=== PATIENT | female | born 1940 | race Hispanic/Latino ===

== ENCOUNTER 2018-07-02 13:54 | Inpatient (IN) | payer MEDICARE, BC ==
--- NOTE | 2018-07-02 14:12 | ED PDOC ---
Arrival/HPI - General Time Seen by Provider: 07/02/18 14:02 Historian: Patient, Family, EMS - History of Present Illness Narrative History of Present Illness (Text): 07/02/18 14:06 77 year old female, with past medical history of Alzheimer's disease, hypertension, presents to the Emergency Department via EMS for medical evaluation s/p fall at [facility] prior to arrival. As per EMS, patient was found in the bathroom floor shaking and complaining of left leg discomfort. Patient reportedly had incontinence but no other signs of seizures were noted and was subsequently brought to the Emergency Department for medical evaluation. Daughter, who is a nurse of [employer] [place] is at bedside and informs patient' s mental status is at her baseline. Daughter denies any history of seizure in the past. Patient is unable to recall if she hit her head but is currently only complaining of left hip pain radiating down to her leg. Patient denies any fever , chills, nausea, vomiting, diarrhea, abdominal pain, chest pain, shortness of breath, cough, headache, dizziness, neck pain, back pain, tongue biting or any other complaints. PMD: Dr. Liriano Time/Duration: Prior to Arrival Symptom Onset: Gradual Symptom Course: Unchanged Quality: Aching Activities at Onset: Light Context: Other (long term) Past Medical History - Provider Review Nursing Documentation Reviewed: Yes - Infectious Disease Hx of Infectious Diseases: None - Tetanus Immunization Tetanus Immunization: Unknown - Cardiac Hx Hypertension: Yes - Pulmonary Hx Asthma: Yes Hx Chronic Obstructive Pulmonary Disease (COPD): Yes - Neurological Hx Alzheimer's Disease: Yes Hx Dementia: Yes (???) - Hematological/Oncological Hx Cancer: No - Musculoskeletal/Rheumatological Hx Falls: Yes (fell this morning) - Genitourinary/Gynecological Hx Sexually Transmitted Diseases: No - Psychiatric Hx Depression: Yes Hx Substance Use: No - Past Surgical History Past Surgical History: No Previous - Suicidal Assessment Feels Threatened In Home Enviroment: No Family/Social History - Physician Review Nursing Documentation Reviewed: Yes Family/Social History: No Known Family HX Smoking Status: Never Smoked Hx Alcohol Use: No Hx Substance Use: No Allergies/Home Meds Allergies/Adverse Reactions: Allergies No Known Allergies Allergy (Verified 07/11/14 08:32) Home Medications: Home Meds Medication Instructions Recorded Confirmed ALPRAZolam [Xanax] 0.25 mg PO DAILY 07/02/18 07/02/18 ALPRAZolam [Xanax] 0.5 mg PO HS 07/02/18 07/02/18 Acetaminophen [Tylenol] 650 mg PO PRN PRN 07/02/18 07/02/18 Cyanocobalamin [Vitamin B12] 1,000 mcg PO DAILY 07/02/18 07/02/18 Magnesium Hydroxide [Milk Of 400 mg PO PRN PRN 07/02/18 07/02/18 Magnesia] Melatonin [Meladox Natural Sleep 3 mg PO HS 07/02/18 07/02/18 Aid] Memantine [Namenda] 10 mg PO DAILY 07/02/18 07/02/18 Mirtazapine [Remeron] 30 mg PO DAILY 07/02/18 07/02/18 Multvitamin 1 tab PO DAILY 07/02/18 07/02/18 QUEtiapine [SEROquel] 50 mg PO HS 07/02/18 07/02/18 Review of Systems - Physician Review All systems were reviewed & negative as marked: Yes - Review of Systems Constitutional: absent: Fevers Respiratory: absent: SOB, Cough Cardiovascular: absent: Chest Pain, RODRIGUEZ Gastrointestinal: absent: Abdominal Pain, Diarrhea, Nausea, Vomiting Musculoskeletal: Arthralgias (left hip and left leg pain). absent: Back Pain, Neck Pain Neurological: absent: Headache, Dizziness Physical Exam Vital Signs Reviewed: Yes Vital Signs Temp Pulse Resp BP Pulse Ox 07/02/18 17:07 88 20 152/73 H 98 07/02/18 14:18 97.5 F L 105 H 18 158/89 H 97 Temperature: Afebrile Blood Pressure: Normal Pulse: Tachycardic Respiratory Rate: Normal Appearance: Positive for: Well-Appearing, Non-Toxic, Comfortable, Other (No incontinence) Pain Distress: None Mental Status: Positive for: other (Alert and oriented to person) - Systems Exam Head: Present: Atraumatic, Normocephalic Pupils: Present: PERRL Extroacular Muscles: Present: EOMI Conjunctiva: Present: Normal Mouth: Present: Moist Mucous Membranes Neck: Present: Normal Range of Motion. No: MIDLINE TENDERNESS, Paraspinal Tenderness Respiratory/Chest: Present: Clear to Auscultation, Good Air Exchange. No: Respiratory Distress, Accessory Muscle Use Cardiovascular: Present: Regular Rate and Rhythm, Normal S1, S2. No: Murmurs Abdomen: No: Tenderness, Distention, Peritoneal Signs Back: Present: Other (mild lower lumbar spine tenderness). No: CVA Tenderness Upper Extremity: Present: Normal Inspection, Normal ROM, NORMAL PULSES. No: Cyanosis, Edema Lower Extremity: Present: NORMAL PULSES, Tenderness (tenderness to left hip), Other (left leg externally rotated+ shortened. ). No: Edema Neurological: Present: GCS=15, CN II-XII Intact, Speech Normal, Motor Func Grossly Intact, Normal Sensory Function Skin: Present: Warm, Dry, Normal Color, Abrasion (superficial abrasion to left thigh and left knee). No: Rashes Psychiatric: Present: Alert, Normal Insight, Normal Concentration Medical Decision Making ED Course and Treatment: 07/02/18 14:31 Impression: 77 year old female presents to the Emergency Department complaining of left hip and leg pain s/p fall. Differential Diagnosis included but are not limited to: fracture vs. dislocation ; seizure Plan: -- Labs -- CT of Cervical Spine -- CT of Head -- Labs -- Chest X-ray -- Tylenol -- X-ray of left ankle -- X-ray of hip -- X-ray of left knee -- UA -- Reassess and disposition Prior Visits: Notes and results from previous visits were reviewed. Progress No 07/02/18 14:32 EKG: Ordered, reviewed, and independently interpreted the EKG. Rate : 105 BPM Rhythm : Sinus Tachycardia Interpretation : No ST-segment elevations or depressions, no T-wave inversions, normal intervals. 07/02/18 16:00 CT of head reviewed by radiologist, no acute findings. CT of Cervical spine reviewed by radiologist, shows not acute findings. X-ray of left knee reviewed by radiologist, shows degenerative changes are seen in the medial and lateral joint compartment. No evidence of fracture. X-ray of Hip/Pelvis reviewed by radiologist, shows displaced subcapital hip fracture on the left. Chest X-ray reviewed by radiologist, shows nodule in the right upper lobe measuring 2.4 cm. This is unchanged. X-ray of left ankle reviewed by radiologist, shows no acute findings. 07/02/18 16:[address] Hurtado who will admit to his service to med/surg for seizure and left hip fracture. Case discussed with Dr. Jean Baptiste who will come and evaluate patient. Toradol IV given for pain control. 07/02/18 16:48 Dr. Jean Baptiste is at bedside evaluating patient. He called for Neurology Consult for Dr. Noonan and Cardiology for Dr. Daniel. I spoke to Dr. Noonan who recommends Keppra 500mg IV now and then BID. - Critical Care Critical Care Minutes: 30 minutes - Lab Interpretations Lab Results: 07/02/18 14:25 07/02/18 14:25 Lab Results 07/02/18 15:30: Blood Type B POSITIVE, Antibody Screen Negative, BBK History Checked No verified bt 07/02/18 14:25: PT 11.6, INR 1.01, APTT 25.7 07/02/18 14:25: Alcohol, Quantitative < 10 07/02/18 14:25: Sodium 139, Potassium 4.4, Chloride 103, Carbon Dioxide 27, Anion Gap 13, BUN 17, Creatinine 0.8, Est GFR ( Amer) > 60, Est GFR (Non- Af Amer) > 60, Random Glucose 176 H, Calcium 9.4, Magnesium 2.1, Total Bilirubin 0.7, AST 36, ALT 23, Alkaline Phosphatase 115, Total Protein 7.8, Albumin 4.2, Globulin 3.6, Albumin/Globulin Ratio 1.2 07/02/18 14:25: WBC 16.5 H D, RBC 4.74, Hgb 14.3, Hct 42.4, MCV 89.5, MCH 30.2, MCHC 33.7, RDW 13.8, Plt Count 308, MPV 10.3, Gran % 87.7 H, Lymph % (Auto) 8.6 L, Bailey % (Auto) 3.6, Eos % (Auto) 0.1 L, Baso % (Auto) 0.0, Gran # 14.51 H, Lymph # (Auto) 1.4, Bailey # (Auto) 0.6, Eos # (Auto) 0.0, Baso # (Auto) 0.00 - RAD Interpretation Radiology Orders: 07/02/18 14:06 CERVICAL SPINE W/O CONTRAST [CT] Stat HEAD W/O CONTRAST [CT] Stat 07/02/18 14:07 CXR [CHEST ONE VIEW] [RAD] Stat ANKLE LEFT 3 VIEWS ROUTINE [RAD] Stat HIP MIN 2V W/ PELVIS LT [RAD] Stat KNEE LEFT 2 VIEWS (AP & LAT) [RAD] Stat 07/02/18 14:35 LUMBAR SPINE W/O CONTRAST [CT] Stat Technical Service Engineer: Radiologist - Medication Orders Current Medication Orders: Acetaminophen (Tylenol 325mg Tab) 650 mg PO Q4H PRN PRN Reason: Pain, Mild (1-3) Sodium Chloride (Sodium Chloride 0.9%) 1,000 mls @ 100 mls/hr IV .Q10H VANESSA Last Admin: 07/02/18 15:31 Dose: 100 mls/hr eMAR Start Stop Document 07/02/18 15:31 EQ (Rec: 07/02/18 15:31 EQ [id number]) Intravenous Solution Start Date 07/02/18 Start Time 15:31 Morphine Sulfate (Morphine) 2 mg IVP Q4H PRN PRN Reason: Pain, severe (8-10) Ondansetron HCl (Zofran Inj) 4 mg IVP Q4H PRN PRN Reason: Nausea/Vomiting Discontinued Medications Acetaminophen (Tylenol 325mg Tab) 650 mg PO STAT STA Stop: 07/02/18 14:08 Last Admin: 07/02/18 14:34 Dose: 650 mg MAR Pain/Vitals Document 07/02/18 14:34 EQ (Rec: 07/02/18 14:34 EQ [id number]) Pain Reassessment Is This A Pain ReAssessment? No Sleep Is patient sleeping during reassessment? No Presence of Pain Presence of Pain Yes Ketorolac Tromethamine (Toradol) 30 mg IVP STAT STA Stop: 07/02/18 16:07 Last Admin: 07/02/18 16:20 Dose: 30 mg MAR Pain Assessment Document 07/02/18 16:20 EQ (Rec: 07/02/18 16:20 EQ [id number]) Pain Reassessment Is this a pain reassessment? No Sleep Is patient sleeping during reassessment? No Presence of Pain Presence of Pain Yes IVP Administration Document 07/02/18 16:20 EQ (Rec: 07/02/18 16:20 EQ [id number]) Charges for Administration # of IVP Administrations 1 Morphine Sulfate (Morphine) 2 mg IVP STAT STA Stop: 07/02/18 16:57 Last Admin: 07/02/18 17:07 Dose: 2 mg MAR Pain Assessment Document 07/02/18 17:07 EQ (Rec: 07/02/18 17:07 EQ [id number]) Pain Reassessment Is this a pain reassessment? No Sleep Is patient sleeping during reassessment? No Presence of Pain Presence of Pain Yes IVP Administration Document 07/02/18 17:07 EQ (Rec: 07/02/18 17:07 EQ [id number]) Charges for Administration # of IVP Administrations 1 - Scribe Statement The provider has reviewed the documentation as recorded by the Scribe Ant Davis. All medical record entries made by the Scribe were at my direction and personally dictated by me. I have reviewed the chart and agree that the record accurately reflects my personal performance of the history, physical exam, medical decision making, and the department course for this patient. I have also personally directed, reviewed, and agree with the discharge instructions and disposition. Disposition/Present on Arrival - Present on Arrival Any Indicators Present on Arrival: No History of DVT/PE: No History of Uncontrolled Diabetes: No Urinary Catheter: No History Surgical Site Infection Following: None - Disposition Have Diagnosis and Disposition been Completed?: Yes Diagnosis: Closed left hip fracture, Seizure Disposition: HOSPITALIZED Disposition Time: 16:02 Patient Plan: Admission Patient Problems: Current Active Problems Problem Status Onset Closed left hip fracture Acute Seizure Acute Condition: GUARDED
[2018-07-02 14:53] LABS: EOS % 0.1 % (1.5-5.0); GRAN # 14.51 (1.4-6.5); GRAN % 87.7 % (50.0-68.0); HEMOGLOBIN 14.3 g/dL (12.0-16.0); LYMPH # 1.4 (1.2-3.4); LYMPH % 8.6 % (22.0-35.0); MEAN CELL VOLUME 89.5 fl (80.0-105.0); MEAN CORPUSCULAR HEMOGLOBIN 30.2 pg (25.0-35.0); MEAN CORPUSCULAR HGB CONC 33.7 g/dl (31.0-37.0); MEAN PLATELET VOLUME 10.3 fl (7.0-11.0); MONO # 0.6 (0.1-0.6); MONO % 3.6 % (1.0-6.0); RBC 4.74 10^6/uL (3.5-6.1); RED CELL DISTRIBUTION WIDTH 13.8 % (11.5-14.5); WHITE BLOOD COUNT 16.5 10^3/ul (4.5-11.0)
[2018-07-02 14:59] LABS: INR 1.01; PARTIAL THROMBOPLASTIN TIME 25.7 Seconds (25.1-36.5); PROTHROMBIN TIME 11.6 SECONDS (9.4-12.5)
--- NOTE | 2018-07-02 15:08 | CT ---
Date of service: 07/02/2018 PROCEDURE: CT HEAD WITHOUT CONTRAST. HISTORY: fall / seizure COMPARISON: None available. TECHNIQUE: Axial computed tomography images were obtained through the head/brain without intravenous contrast. Radiation dose: Total exam DLP = 1791 mGy-cm. This CT exam was performed using one or more of the following dose reduction techniques: Automated exposure control, adjustment of the mA and/or kV according to patient size, and/or use of iterative reconstruction technique. FINDINGS: HEMORRHAGE: No intracranial hemorrhage. BRAIN: No mass effect or edema. Mild atrophy. VENTRICLES: Unremarkable. No hydrocephalus. CALVARIUM: Unremarkable. PARANASAL SINUSES: Unremarkable as visualized. No significant inflammatory changes. MASTOID AIR CELLS: Unremarkable as visualized. No inflammatory changes. OTHER FINDINGS: None. IMPRESSION: No acute findings
--- NOTE | 2018-07-02 15:10 | CT ---
Date of service: 07/02/2018 PROCEDURE: CT Cervical Spine without contrast HISTORY: fall r/o fracture COMPARISON: None available. TECHNIQUE: Axial computed tomography images were obtained of the cervical spine without the use of intravenous contrast. Coronal and sagittal reformatted images were created and reviewed. Radiation dose: Total exam DLP = 437 mGy-cm. This CT exam was performed using one or more of the following dose reduction techniques: Automated exposure control, adjustment of the mA and/or kV according to patient size, and/or use of iterative reconstruction technique. FINDINGS: VERTEBRAE: No fracture. Normal alignment. No destructive bony lesion. DISCS/SPINAL CANAL/NEURAL FORAMINA: No significant central canal or neural foraminal stenosis. There is disc degeneration at C4-5 and C5-6 PARASPINAL SOFT TISSUES: Unremarkable. OTHER FINDINGS: None. IMPRESSION: No acute findings
[2018-07-02 15:15] LABS: CALCIUM 9.4 mg/dL (8.4-10.5); GFR NON-AFRICAN AMERICAN > 60
--- NOTE | 2018-07-02 15:22 | CT ---
Date of service: 07/02/2018 PROCEDURE: CT Lumbar Spine without contrast HISTORY: fall r/o fx COMPARISON: None available. TECHNIQUE: Axial computed tomography images were obtained of the lumbar spine without the use of intravenous contrast. Coronal and sagittal reformatted images were created and reviewed. Radiation dose: Total exam DLP = 1493 mGy-cm. This CT exam was performed using one or more of the following dose reduction techniques: Automated exposure control, adjustment of the mA and/or kV according to patient size, and/or use of iterative reconstruction technique. FINDINGS: VERTEBRAE: Unremarkable. No fracture. Normal alignment. DISCS/SPINAL CANAL/NEURAL FORAMINA: L1-2: Unremarkable. L2-3: Unremarkable. L3-4: Unremarkable. L4-5: There is facet arthropathy with small synovial cysts. There is air within the facet joints and the synovial cysts. There is a moderate degree of stenosis. L5-S1: Moderate facet arthropathy at L5-S1. PARASPINAL SOFT TISSUES: Unremarkable. OTHER FINDINGS: None. IMPRESSION: No acute compression fractures. Facet arthropathy at L4-5 with mild to moderate stenosis
[2018-07-02] MEDS: Sodium Chloride 0.9% 1,000 ML IV SCH (15:31)
--- NOTE | 2018-07-02 15:35 | RAD ---
Date of service: 07/02/2018 PROCEDURE: CHEST RADIOGRAPH, 1 VIEW HISTORY: fall r/o fraccture COMPARISON: 07/03/2014 FINDINGS: LUNGS: There is nodule in the right upper lobe measuring 2.4 cm. This is unchanged PLEURA: No pneumothorax or pleural fluid seen. CARDIOVASCULAR: Normal. OSSEOUS STRUCTURES: No significant abnormalities. VISUALIZED UPPER ABDOMEN: Normal. OTHER FINDINGS: None. IMPRESSION: There is nodule in the right upper lobe measuring 2.4 cm. This is unchanged
--- NOTE | 2018-07-02 15:37 | RAD ---
Date of service: 07/02/2018 PROCEDURE: Pelvis three views HISTORY: fall r/o fx COMPARISON: TECHNIQUE: Three views FINDINGS: There is a displaced subcapital hip fracture on the left. The pelvis is intact. The right hip is unremarkable IMPRESSION: Displaced subcapital hip fracture on the left
--- NOTE | 2018-07-02 15:38 | RAD ---
Date of service: 07/02/2018 PROCEDURE: Left Knee Radiographs. HISTORY: Pain. COMPARISON: None. FINDINGS: BONES: Normal. No fracture. JOINTS: Degenerative changes are seen in the medial and lateral joint compartment. No evidence of fracture JOINT EFFUSION: None. OTHER FINDINGS: None. IMPRESSION: Degenerative changes are seen in the medial and lateral joint compartment. No evidence of fracture
--- NOTE | 2018-07-02 15:39 | RAD ---
Date of service: 07/02/2018 PROCEDURE: Left Ankle Radiographs. HISTORY: fall r/o fx COMPARISON: None FINDINGS: BONES: Normal. No fracture. JOINTS: Normal. No osteoarthritis. Ankle mortise maintained. Talar dome intact SOFT TISSUES: Normal. OTHER FINDINGS: None. IMPRESSION: Normal left ankle radiographs.
[2018-07-02 16:01] LABS: ALB/GLOB RATIO 1.2 (1.1-1.8); ALBUMIN 4.2 g/dL (3.0-4.8); ALT/SGPT 23 U/L (7-56); AST/SGOT 36 U/L (14-36); BLOOD UREA NITROGEN 17 mg/dL (7-21)
[2018-07-02 16:54] LABS: PH,URINE 6.5 (4.7-8.0); URINE APPEARANCE CLEAR (CLEAR); URINE BILIRUBIN NEGATIVE (NEGATIVE); URINE BLOOD NEGATIVE (NEGATIVE); URINE COLOR YELLOW (YELLOW); URINE GLUCOSE (UA) NEGATIVE (NEGATIVE); URINE LEUKOCYTE ESTERASE NEGATIVE Leu/uL (NEGATIVE); URINE PROTEIN TRACE mg/dL (<30 mg/dL); URINE UROBILINOGEN 0.2 E.U./dL (<1 E.U./dL)
[2018-07-02] MEDS ORDERED: Morphine 2 mg/ml ISec IVP STA (16:56)
[2018-07-02 16:59] LABS: URINE BACTERIA FEW (NEG); URINE RBC 0 - 2 /hpf (0-2); URINE WBC 0 - 2 /hpf (0-6)
[2018-07-02] MEDS ORDERED: levETIRAcetam 500mg IVPB 500 MG/100 ML BAG IVPB STA (17:10)
--- NOTE | 2018-07-02 17:11 | CARD ---
APPROVED REPORT Date of service: 07/02/2018 EKG Measurement Heart [id number] <Conclusion> Sinus tachycardia Otherwise normal ECG
[2018-07-02 19:22] VITALS: BMI 25.7
--- NOTE | 2018-07-03 05:35 | CON ---
DATE: 07/02/2018 HISTORY OF PRESENT ILLNESS: This is a 77-year-old white female with past medical history of Alzheimer's, hypertension. Patient came to the emergency room following after a fall and was found on the bathroom floor, shaking and lost control of urine, no tongue bite. Called to evaluate the patient. PAST MEDICAL HISTORY: As above. High blood pressure, Alzheimer's and dementia. ALLERGIES: NO KNOWN DRUG ALLERGIES. HOME MEDICATIONS: Xanax, Tylenol, Namenda, Remeron and Seroquel. PHYSICAL EXAMINATION: VITAL SIGNS: Blood pressure 158/89. HEENT: Normocephalic, atraumatic. NECK: Supple. NEUROLOGIC: Alert, awake, orientated to self. Cranial nerves II through XII were tested. Pupils reactive. EOM intact. Visual almonte full. No facial asymmetry. Tongue midline. Moves all extremities equally except less movement at left leg and secondary to fracture. Cerebellar and gait, deferred. IMPRESSION: 1. Status post fall, possibly new onset seizure. 2. Superimposed on dementia. PLAN: CAT scan of the head was negative. We will start her on Keppra 500 mg twice a day and patient will go for surgery tomorrow. Jeevan Noonan MD
[2018-07-03] MEDS: Morphine 2 mg/ml ISec IVP PRN (05:51)
[2018-07-03] MEDS: Sodium Chloride 0.9% 1,000 ML IV SCH ×2 (05:53→21:26)
[2018-07-03 06:31] LABS: HEMOGLOBIN 11.7 g/dL (12.0-16.0); MEAN CELL VOLUME 89.5 fl (80.0-105.0); MEAN CORPUSCULAR HEMOGLOBIN 29.3 pg (25.0-35.0); MEAN CORPUSCULAR HGB CONC 32.8 g/dl (31.0-37.0); RBC 3.99 10^6/uL (3.5-6.1); RED CELL DISTRIBUTION WIDTH 13.8 % (11.5-14.5); WHITE BLOOD COUNT 8.2 10^3/ul (4.5-11.0)
[2018-07-03 07:04] LABS: ALB/GLOB RATIO 1.1 (1.1-1.8); ALBUMIN 3.4 g/dL (3.0-4.8); ALT/SGPT 26 U/L (7-56); AST/SGOT 30 U/L (14-36); BLOOD UREA NITROGEN 18 mg/dL (7-21); CALCIUM 8.5 mg/dL (8.4-10.5); GFR NON-AFRICAN AMERICAN > 60
--- NOTE | 2018-07-03 08:34 | CON ---
DATE: 07/02/2018 ORTHOPEDIC CONSULT LOCATION: [facility] Emergency Room. HISTORY OF PRESENT ILLNESS: The patient is a 77-year-old female sustained a fall while she was being an inpatient at [facility] and sustained a displaced subcapital fracture of left hip. The CAT scan is negative. The family was told that we should do a bipolar hip prosthesis, so that she can get up out of bed and start ambulating at therapy, as opposed to just lying in bed with tremendous pain. So, the surgery is to be accomplished; 1. To get rid of the pain. 2. To make her functional and ambulate with a walker; and at therapy, she could gradually improve and get stronger to a point where she could walk without an banking assistant/device. So, we will plan doing the surgery on 07/03/2018. We are going to get a medical clearance with Dr. Hurtado, Dr. Daniel, and Dr. Noonan. Eliu Jean Baptiste DO
[2018-07-03] MEDS ORDERED: Bupivacaine 0.5% Inj(30mL) ONE (09:37)
[2018-07-03] MEDS ORDERED: Vancomycin 1 g Inj ONE ×3 (09:39→11:57)
[2018-07-03] MEDS ORDERED: Tranexamic Acid 1 ML ONE (09:39)
[2018-07-03] MEDS ORDERED: Etomidate 20 mg/10ml Inj IV ONE (10:26)
[2018-07-03] MEDS ORDERED: Rocuronium 10 mg/ml (5 ml) ONE (10:28)
[2018-07-03] MEDS ORDERED: Succinylcholine 200 mg/10 ml Inj IV ONE (10:28)
[2018-07-03] MEDS ORDERED: ePHEDrine 50 mg/ml Inj ONE (11:04)
--- NOTE | 2018-07-03 12:35 | CP.PCM.HP ---
<Stone Melvin - Last Filed: 07/03/18 12:26> History of Present Illness - History of Present Illness History of Present Illness: 77 year old female with past medical history of alzheimer's disease and hypertension presented to the hospital after being found on the ground with seizure like movements at senior care. Patient has history of dementia and prior medical history taken from previous medical records. Patient was found on the bathroom floor shaking. Patient was also noted to be complaining of left leg pain. Patient was brought into the hospital by her daughter. According to daughter, patient does not have any history of seizures. In the ED patient received head CT which showed no acute findings. Patient also had x-ray of left ankle, left knee which were negative for acute findings. Patient had x-ray of left hip which showed a subcapital hip fracture. ROS and prior medical history unobtainable secondary to patient's dementia. Present on Admission - Present on Admission Any Indicators Present on Admission: No Review of Systems - Review of Systems Systems not reviewed;Unavailable: Dementia Past Patient History - Infectious Disease Hx of Infectious Diseases: None - Tetanus Immunizations Tetanus Immunization: Unknown - Past Medical History & Family History Past Medical History?: Yes - Past Social History Smoking Status: Never Smoked - CARDIAC Hx Cardiac Disorders: Yes Hx Hypercholesterolemia: Yes Hx Hypertension: Yes - PULMONARY Hx Respiratory Disorders: Yes Hx Asthma: Yes (work related) Hx Chronic Obstructive Pulmonary Disease (COPD): (daughter denies) Other/Comment: 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 and developed asthma but has not had an episode in years, lung nodule found10 yrs ago, has been stable no tx - NEUROLOGICAL Hx Alzheimer's Disease: Yes (dx about 3 yrs ago) Hx Dementia: Yes (dx about 3 yrs ago) Hx Dizziness: Yes (vertigo) Other/Comment: pt "sundown's", wanders, has had hallucinations in the past, agitation, memory loss, confusion, as per daughter - HEENT Hx HEENT Problems: No - RENAL Hx Chronic Kidney Disease: No - ENDOCRINE/METABOLIC Hx Endocrine Disorders: No - HEMATOLOGICAL/ONCOLOGICAL Hx Blood Disorders: No Hx Cancer: No - INTEGUMENTARY Hx Dermatological Problems: Yes Hx Eczema: Yes Other/Comment: dry patches of skin over body from eczema, small 1cm round red area of skin above left knee - MUSCULOSKELETAL/RHEUMATOLOGICAL Hx Falls: Yes (found on floor today) - GASTROINTESTINAL Hx Gastrointestinal Disorders: No - GENITOURINARY/GYNECOLOGICAL Hx Genitourinary Disorders: Yes (negative mammo abouot 5 yrs ago) Hx Sexually Transmitted Disorders: No - PSYCHIATRIC Hx Substance Use: No - SURGICAL HISTORY Hx Surgeries: No Meds Allergies/Adverse Reactions: Allergies Allergy/AdvReac Type Severity Reaction Status Date / Time No Known Allergies Allergy Verified 07/11/14 08:32 Physical Exam - Constitutional Appears: Non-toxic, Agitated, Confused - Head Exam Head Exam: ATRAUMATIC, NORMAL INSPECTION, NORMOCEPHALIC - Eye Exam Eye Exam: Normal appearance. absent: Scleral icterus - ENT Exam ENT Exam: Mucous Membranes Moist - Respiratory Exam Respiratory Exam: Clear to Auscultation Bilateral, NORMAL BREATHING PATTERN - Cardiovascular Exam Cardiovascular Exam: RRR, +S1, +S2 - GI/Abdominal Exam GI & Abdominal Exam: Normal Bowel Sounds, Soft. absent: Tenderness - Extremities Exam Additional comments: Left hip pain on palpation - Neurological Exam Neurological exam: Alert Additional comments: Oriented to person only - Psychiatric Exam Psychiatric exam: Agitated - Skin Skin Exam: Dry, Intact, Warm Results - Vital Signs Recent Vital Signs: Last Vital Signs Temp 98.8 F 07/03/18 09:30 Pulse 101 H 07/03/18 09:30 Resp 20 07/03/18 09:30 BP 137/61 07/03/18 09:30 Pulse Ox 96 07/03/18 09:30 - Labs Result Diagrams: 07/03/18 05:30 07/03/18 05:30 Labs: Laboratory Results - last 24 hr 07/02/18 07/02/18 07/03/18 16:43 17:15 05:30 WBC 8.2 D RBC 3.99 Hgb 11.7 L D Hct 35.7 L MCV 89.5 MCH 29.3 MCHC 32.8 RDW 13.8 Plt Count 256 MPV 10.0 Sodium Potassium Chloride Carbon Dioxide Anion Gap BUN Creatinine Est GFR ( Amer) Est GFR (Non-Af Amer) Random Glucose Calcium Magnesium Total Bilirubin AST ALT Alkaline Phosphatase Total Protein Albumin Globulin Albumin/Globulin Ratio Urine Color Yellow Urine Appearance Clear Urine pH 6.5 Ur Specific [place] 1.015 Urine Protein Trace H Urine Glucose (UA) Negative Urine Ketones Trace H Urine Blood Negative Urine Nitrate Negative Urine Bilirubin Negative Urine Urobilinogen 0.2 Ur Leukocyte Esterase Negative Urine RBC 0 - 2 Urine WBC 0 - 2 Ur Epithelial Cells 3 - 4 Urine Bacteria Few Blood Type Confirm B POSITIVE 07/03/18 05:30 WBC RBC Hgb Hct MCV MCH MCHC RDW Plt Count MPV Sodium 139 Potassium 4.2 Chloride 107 Carbon Dioxide 26 Anion Gap 10 BUN 18 Creatinine 0.9 Est GFR ( Amer) > 60 Est GFR (Non-Af Amer) > 60 Random Glucose 112 H Calcium 8.5 Magnesium 2.0 Total Bilirubin 0.9 AST 30 ALT 26 Alkaline Phosphatase 81 Total Protein 6.5 Albumin 3.4 Globulin 3.1 Albumin/Globulin Ratio 1.1 Urine Color Urine Appearance Urine pH Ur Specific [place] Urine Protein Urine Glucose (UA) Urine Ketones Urine Blood Urine Nitrate Urine Bilirubin Urine Urobilinogen Ur Leukocyte Esterase Urine RBC Urine WBC Ur Epithelial Cells Urine Bacteria Blood Type Confirm Assessment & Plan - Assessment and Plan (Free Text) Plan: 1. Left subcapital hip fracture 2. New onset seizure 3. Alzheimer's disease 4. Hypertension Patient is scheduled for orthopedic repair of left hip fracture today. Patient will be continued on Morphine for pain. Metoprolol has also been added. Patient is placed on keppra to prevent any further seizure activity. We will have neurology follow up on patient. Patient will also be continued on Namenda for alzheimer's. Patient will have her Seroquel and Remron continued. We will continue normal saline for fluids. We will continue to monitor patient closely. Olegario, PGY-3 <Aramis Hurtado S - Last Filed: 07/04/18 20:36> Results - Vital Signs Recent Vital Signs: Last Vital Signs Temp 98 F 07/04/18 07:00 Pulse 98 H 07/04/18 18:49 Resp 19 07/04/18 18:49 BP 126/64 07/04/18 18:49 Pulse Ox 97 07/04/18 18:49 - Labs Result Diagrams: 07/04/18 13:10 07/04/18 06:20 Labs: Laboratory Results - last 24 hr 07/04/18 07/04/18 07/04/18 06:20 06:20 06:20 WBC 9.3 D RBC 3.42 L Hgb 9.9 L Hct 30.6 L MCV 89.5 MCH 28.9 MCHC 32.4 RDW 13.6 Plt Count 217 MPV 10.2 Gran % 74.3 H Lymph % (Auto) 15.9 L Garrard % (Auto) 9.4 H Eos % (Auto) 0.3 L Baso % (Auto) 0.1 Gran # 6.90 H Lymph # (Auto) 1.5 Garrard # (Auto) 0.9 H Eos # (Auto) 0.0 Baso # (Auto) 0.01 Sodium 137 Potassium 3.9 Chloride 106 Carbon Dioxide 25 Anion Gap 10 BUN 11 Creatinine 0.8 Est GFR ( Amer) > 60 Est GFR (Non-Af Amer) > 60 Random Glucose 125 H Hemoglobin A1c 6.4 Calcium 7.8 L Phosphorus 3.2 Magnesium 1.7 Total Bilirubin 1.1 AST 43 H D ALT 27 Alkaline Phosphatase 67 Total Protein 5.7 L Albumin 2.9 L Globulin 2.8 Albumin/Globulin Ratio 1.0 L Triglycerides 76 Cholesterol 140 LDL Cholesterol Direct 77 HDL Cholesterol 39 TSH 3rd Generation 07/04/18 07/04/18 06:20 13:10 WBC 11.5 H D RBC 3.59 Hgb 10.6 L Hct 32.2 L MCV 89.7 MCH 29.5 MCHC 32.9 RDW 13.4 Plt Count 212 MPV 9.9 Gran % 79.6 H Lymph % (Auto) 12.2 L Garrard % (Auto) 8.0 H Eos % (Auto) 0.2 L Baso % (Auto) 0.0 Gran # 9.11 H Lymph # (Auto) 1.4 Garrard # (Auto) 0.9 H Eos # (Auto) 0.0 Baso # (Auto) 0.00 Sodium Potassium Chloride Carbon Dioxide Anion Gap BUN Creatinine Est GFR ( Amer) Est GFR (Non-Af Amer) Random Glucose Hemoglobin A1c Calcium Phosphorus Magnesium Total Bilirubin AST ALT Alkaline Phosphatase Total Protein Albumin Globulin Albumin/Globulin Ratio Triglycerides Cholesterol LDL Cholesterol Direct HDL Cholesterol TSH 3rd Generation 0.50 Assessment & Plan - Assessment and Plan (Free Text) Plan: Pt seen and examined. This is a late entry. I have reviewed the note of the medical clerk and agree with it. I have discussed the assessment and plan with the resident. I have reviewed the patient's labs and medications. Pt with L hip fx. She has no Sz. No Delerium, she is at baseline. BP is controlled. No new Sz.
[2018-07-03] MEDS ORDERED: Glycopyrrolate 0.2 mg/ml (2ml vial) ONE (13:04)
[2018-07-03] MEDS ORDERED: HYDROmorphone 0.5 mg/0.5 ml ISec IVP PRN (13:32)
[2018-07-03] MEDS ORDERED: Lactated Ringer's 1,000 ML IV SCH (13:45)
--- NOTE | 2018-07-03 14:46 | CON ---
DATE: 07/03/2018 REASON FOR CONSULTATION: Preop evaluation, risk stratification, status post fall, status post hip fracture requiring open reduction and internal fixation for left hip fracture. BRIEF CLINICAL HISTORY: This is a 77-year-old female with past medical history is significant for Alzheimer, hypertension, presented to the Emergency Room after a fall at a [facility] and questionable history of seizure disorder and then, the patient fell down and broke left hip requiring open reduction and internal fixation. Cardiac consult was called for preop evaluation and risk stratification. The patient has dementia for the last three years. Daughter works in the [employer]. Information obtained from the daughter. No significant history of coronary artery disease documented, no history of angina, no history of congestive heart failure, no history of arrhythmia. PAST MEDICAL HISTORY: Significant for Alzheimer disease for three years and history of hypertension. Resident of [facility]. PAST SURGICAL HISTORY: None significant. SOCIAL HISTORY: Denies any history of alcohol abuse. CURRENT MEDICATIONS: The patient is taking at [facility] Seroquel 50 mg p.o. at bedtime, multivitamin, Remeron, Namenda, melatonin, magnesium oxide, cyanocobalamin, Tylenol and Xanax. ALLERGIES: NO KNOWN DRUG ALLERGIES. PHYSICAL EXAMINATION: VITAL SIGNS: Height of the patient is 5 feet 4 inches, weight of the patient 150 pounds, and body mass index 25.7 kg/m2. Rest of the vitals, temperature afebrile, heart rate 90, blood pressure 136/66. HEENT: PERRLA. Extraocular muscles intact. NECK: Supple. No carotid bruits or thyromegaly. CHEST: Clear to auscultation. HEART: S1 and S2 regular. ABDOMEN: Soft. EXTREMITIES: Clubbing and cyanosis negative. LABORATORY DATA: Blood workup as follows: WBC 8.2, hemoglobin 11.3, hematocrit 35.7, and platelet count 256. Chemistry shows sodium 139, potassium 4.2, chloride 107, carbon dioxide 26, anion gap of 10, BUN 18 and creatinine 0.9. EKG shows sinus tachycardia. IMPRESSION AND PLAN: A 77-year-old female with a past medical history significant for dementia, no significant history of coronary artery disease, no history of angina, no history of arrhythmia; history of dementia, resident of a [facility] who fell down, possibly after a seizure and sustained left hip fracture requiring open reduction and internal fixation. The patient is cleared from Cardiology point of view. May need neurological evaluation before anesthesia if history of seizure is clear, right now it is sketchy, but otherwise no absolute contraindication from Cardiology point of view to go to the OR. Discussed with Dr. Hurtado. We will discuss with Dr. Jean Baptiste. Discussed with the patient's daughter, Jane who works in the [employer] and information obtained from her. We will start low dose beta kendall to prevent going into atrial fibrillation. We will clear for the surgery. We will get echo postop to assess LV function. We will follow with you. We will get lipid profile, TSH, hemoglobin A1c. We will give low dose of Lopressor. The patient is tachycardic, so give 25 mg p.o. in one dose until going back into atrial fibrillation. Thank you Dr. Hurtado for providing us the opportunity in taking care of patient, Brigitte. Dia Daniel MD cc: Aramis Hurtado MD MTDD
--- NOTE | 2018-07-03 15:30 | RAD ---
Date of service: 07/03/2018 PROCEDURE: Left hip single view HISTORY: post op COMPARISON: TECHNIQUE: Single portable film FINDINGS: The left hip prosthesis is in satisfactory alignment. There are no complicating factors IMPRESSION: As above
[2018-07-03 15:58] LABS: BASO # 0.01 K/mm3 (0.0-2.0); BASO % 0.1 % (0.0-3.0); EOS % 0.1 % (1.5-5.0); GRAN # 11.31 (1.4-6.5); GRAN % 77.7 % (50.0-68.0); LYMPH # 2.3 (1.2-3.4); LYMPH % 15.9 % (22.0-35.0); MEAN CELL VOLUME 90.4 fl (80.0-105.0); MEAN CORPUSCULAR HEMOGLOBIN 29.3 pg (25.0-35.0); MEAN CORPUSCULAR HGB CONC 32.4 g/dl (31.0-37.0); MONO # 0.9 (0.1-0.6); MONO % 6.2 % (1.0-6.0); RBC 3.76 10^6/uL (3.5-6.1); RED CELL DISTRIBUTION WIDTH 13.8 % (11.5-14.5); WHITE BLOOD COUNT 14.6 10^3/ul (4.5-11.0)
--- NOTE | 2018-07-03 17:28 | OP ---
PROCEDURE DATE: 07/03/2018 PREOPERATIVE DIAGNOSIS: Displaced subcapital fracture left hip. POSTOPERATIVE DIAGNOSIS: Displaced subcapital fracture left hip. PROCEDURE: Left bipolar hip prosthesis using a standard femoral stem, integral x-series hip system with 13 mm x 145 mm was recorded. Acetabular cup of 44 mm and a modular femoral head of 28 mm. NAME PLATE STAMPING MACHINE OPERATOR SURGEON: Podiatry resident. ANESTHESIA: General endotracheal tube. DESCRIPTION OF PROCEDURE: Patient in the OR was prepped and draped in the sterile fashion in left lateral decubitus position. When she was prepped, we put a posterior lateral incision after the landmarks were made on the left hip going 3 inches above, 3 inches below the greater trochanter, a deep knife was used to go through the abundant subcutaneous tissue. Then, we identified the fascia bonnie opened in line with the incision. Protected the external rotators, which were tagged. Then, opened the capsule in [id number] and the femoral head was readily removed, measured 44 mm. Then, we did appropriate reaming of the femoral shaft to allow to fit a trial stem of 13 x 145 mm fit good in standard neck and good sized bipolar head with 44 mm permanent prosthesis was put in. No evidence of fracturing the local area. Then we irrigated everything out and put in vancomycin powdered in fascia bonnie closed with 0 Vicryl, 2-0 Vicryl subcutaneous tissue, skin with stainless steel magalie and 2-0 nylon. Patient put in sterile dressing. She was sent to the recovery room in good condition with abduction pillow and a knee immobilizer. Eliu Jean Baptiste DO
[2018-07-03 18:51] LABS: BENZODIAZEPINES, UR NEGATIVE (NEGATIVE)
[2018-07-03 18:59] LABS: BARBITURATES, UR NEGATIVE (NEGATIVE); OPIATES, UR POSITIVE (NEGATIVE); PHENCYCLIDINE, UR NEGATIVE (NEGATIVE)
[2018-07-03] MEDS: ceFAZolin 1 gm in NS 1 GM/100 ML BAG IVPB SCH ×2 (20:43→23:29)
[2018-07-03] MEDS ORDERED: levETIRAcetam 500 MG in Sodium Chloride 0.9% 100 ML IV SCH (22:00)
[2018-07-03] MEDS ORDERED: ceFAZolin 1 gm in NS 1 GM/100 ML BAG IVPB SCH (22:46)
[2018-07-04 07:10] LABS: BASO # 0.01 K/mm3 (0.0-2.0); BASO % 0.1 % (0.0-3.0); EOS % 0.3 % (1.5-5.0); GRAN # 6.9 (1.4-6.5); GRAN % 74.3 % (50.0-68.0); HEMOGLOBIN 9.9 g/dL (12.0-16.0); LYMPH # 1.5 (1.2-3.4); LYMPH % 15.9 % (22.0-35.0); MEAN CELL VOLUME 89.5 fl (80.0-105.0); MEAN CORPUSCULAR HEMOGLOBIN 28.9 pg (25.0-35.0); MEAN CORPUSCULAR HGB CONC 32.4 g/dl (31.0-37.0); MEAN PLATELET VOLUME 10.2 fl (7.0-11.0); MONO # 0.9 (0.1-0.6); MONO % 9.4 % (1.0-6.0); RBC 3.42 10^6/uL (3.5-6.1); RED CELL DISTRIBUTION WIDTH 13.6 % (11.5-14.5); WHITE BLOOD COUNT 9.3 10^3/ul (4.5-11.0)
[2018-07-04 07:12] LABS: ALBUMIN 2.9 g/dL (3.0-4.8); ALT/SGPT 27 U/L (7-56); AST/SGOT 43 U/L (14-36); BLOOD UREA NITROGEN 11 mg/dL (7-21); CALCIUM 7.8 mg/dL (8.4-10.5); GFR NON-AFRICAN AMERICAN > 60; HDL CHOLESTEROL 39 mg/dL (29-60)
[2018-07-04 07:21] LABS: LDL CHOLESTEROL 77 mg/dL (0-129)
--- NOTE | 2018-07-04 09:43 | PN ---
DATE: 07/04/2018 FIRST DAY POSTOP REPORT LOCATION: In 376 bed 2. The patient underwent a bipolar hip prosthesis yesterday for displaced subcapital fracture. She has no complaints of undue pain. She was trying to dismantle the abduction pillow, but I reinforced it. Her hemoglobin is 9.9 and 30.6. We will follow her closely and protect her from her tendency to dismantle the abduction pillow, but we will get her up out of bed to move her, minimize bedsores and get her ambulating and functional, but we have to protect her from a make sure she does not inadvertently hyperflex or rotate that left hip and make sure she does not fall again. I will follow her closely. We will bring her to [facility] once she is stable from postop point of view. Eliu Jean Baptiste DO
[2018-07-04] MEDS ORDERED: levETIRAcetam 500 MG in Sodium Chloride 0.9% 100 ML IV SCH (10:00)
[2018-07-04] MEDS ORDERED: levETIRAcetam 500mg IVPB 500 MG/100 ML BAG IVPB SCH (10:00)
[2018-07-04] MEDS ORDERED: Enoxaparin 30 mg Syringe SC SCH (10:00)
--- NOTE | 2018-07-04 10:04 | CP.PCM.PN ---
Subjective - Date & Time of Evaluation Date of Evaluation: 07/04/18 Time of Evaluation: 06:50 - Subjective Subjective: Awake, lying in bed, no distress Reason for consultation and follow up: Cardiac evaluation for hip surgery, risk stratification, post fall, history of Alzheimer's disease, hypertension Seen and examined by me and Dr. Daniel Objective - Vital Signs/Intake and Output Vital Signs (last 24 hours): Temp Pulse Resp BP Pulse Ox 98 F 80 20 123/71 98 07/04/18 07:00 07/04/18 07:00 07/04/18 07:00 07/04/18 07:00 07/04/18 07:00 - Medications Medications: Current Medications Acetaminophen (Tylenol 325mg Tab) 650 mg PO Q4H PRN PRN Reason: Pain, Mild (1-3) Last Admin: 07/04/18 00:32 Dose: 650 mg Alprazolam (Xanax) 0.5 mg PO HS [facility] PRN Reason: Protocol Stop: 07/10/18 22:01 Last Admin: 07/03/18 21:25 Dose: 0.5 mg Amoxicillin/Clavulanate Potassium (Augmentin 500 Mg-125 Mg Tab) 1 tab PO Q12 [facility] PRN Reason: Protocol Enoxaparin Sodium (Lovenox) 30 mg SC DAILY [facility] PRN Reason: Protocol Levetiracetam (Keppra) 500 mg PO BID [facility] Memantine (Namenda) 10 mg PO DAILY [facility] Last Admin: 07/03/18 16:34 Dose: Not Given Metoprolol Tartrate (Lopressor) 25 mg PO BID [facility] Last Admin: 07/03/18 18:14 Dose: 25 mg Mirtazapine (Remeron) 30 mg PO HS [facility] Morphine Sulfate (Morphine) 2 mg IVP Q4H PRN PRN Reason: Pain, severe (8-10) Last Admin: 07/03/18 05:51 Dose: 2 mg Ondansetron HCl (Zofran Inj) 4 mg IVP Q4H PRN PRN Reason: Nausea/Vomiting Quetiapine Fumarate (Seroquel) 50 mg PO HS [facility] PRN Reason: Protocol Last Admin: 07/03/18 21:25 Dose: 50 mg - Labs Labs: 07/04/18 06:20 07/04/18 06:20 PT 11.6 SECONDS (9.4-12.5) 07/02/18 14:25 INR 1.01 07/02/18 14:25 APTT 25.7 Seconds (25.1-36.5) 07/02/18 14:25 - Constitutional Appears: No Acute Distress - Eye Exam Eye Exam: Normal appearance - ENT Exam ENT Exam: Mucous Membranes Moist - Respiratory Exam Respiratory Exam: Clear to Ausculation Bilateral, NORMAL BREATHING PATTERN - Cardiovascular Exam Cardiovascular Exam: +S1, +S2 - GI/Abdominal Exam GI & Abdominal Exam: Soft, Normal Bowel Sounds - Extremities Exam Extremities Exam: Normal Capillary Refill Additional comments: left lef immobilizer with abductor pillow - Neurological Exam Neurological Exam: Alert, Awake - Psychiatric Exam Psychiatric exam: Normal Affect - Skin Skin Exam: Intact, Warm Assessment and Plan - Assessment and Plan (Free Text) Assessment: A 77 year old female who came in to the ER due to [facility] from [facility],post hip fracture requiring surgery.Status post left hip bipolar bioprosthesis. History of Alzheimers disease and hypertension. no significant history of coronary artery disease or ischemia.She was cleared for surgery from cardiac standpoint. Follow up today, she is stable clinically. No distress Plan: Cardiac status stable Heart rate and blood pressure stable Afebrile Continue current treatment Continue current medications Physical therapy Will follow up Plan and treatment discussed with Dr. Daniel
[2018-07-04] MEDS: Amoxicillin-Clav 500-125 mg Tab PO SCH ×2 (10:50→21:40)
[2018-07-04 13:18] LABS: EOS % 0.2 % (1.5-5.0); GRAN # 9.11 (1.4-6.5); GRAN % 79.6 % (50.0-68.0); HEMOGLOBIN 10.6 g/dL (12.0-16.0); LYMPH # 1.4 (1.2-3.4); LYMPH % 12.2 % (22.0-35.0); MEAN CELL VOLUME 89.7 fl (80.0-105.0); MEAN CORPUSCULAR HEMOGLOBIN 29.5 pg (25.0-35.0); MEAN CORPUSCULAR HGB CONC 32.9 g/dl (31.0-37.0); MEAN PLATELET VOLUME 9.9 fl (7.0-11.0); MONO # 0.9 (0.1-0.6); RBC 3.59 10^6/uL (3.5-6.1); RED CELL DISTRIBUTION WIDTH 13.4 % (11.5-14.5); WHITE BLOOD COUNT 11.5 10^3/ul (4.5-11.0)
[2018-07-04] MEDS: Morphine 2 mg/ml ISec IVP PRN ×2 (14:23→18:36)
--- NOTE | 2018-07-04 15:33 | CP.PCM.PN ---
<Stone Melvin - Last Filed: 07/04/18 15:23> Subjective - Date & Time of Evaluation Date of Evaluation: 07/04/18 Time of Evaluation: 08:00 - Subjective Subjective: Patient seen and examined at bedside. Patient with no acute events overnight. ROS limited due to mental status. Objective - Vital Signs/Intake and Output Vital Signs (last 24 hours): Temp Pulse Resp BP Pulse Ox 98 F 80 20 123/71 98 07/04/18 07:00 07/04/18 07:00 07/04/18 07:00 07/04/18 07:00 07/04/18 07:00 - Medications Medications: Current Medications Acetaminophen (Tylenol 325mg Tab) 650 mg PO Q4H PRN PRN Reason: Pain, Mild (1-3) Last Admin: 07/04/18 00:32 Dose: 650 mg Alprazolam (Xanax) 0.5 mg PO HS [facility] PRN Reason: Protocol Stop: 07/10/18 22:01 Last Admin: 07/03/18 21:25 Dose: 0.5 mg Amoxicillin/Clavulanate Potassium (Augmentin 500 Mg-125 Mg Tab) 1 tab PO Q12 [facility] PRN Reason: Protocol Last Admin: 07/04/18 10:50 Dose: 1 tab Enoxaparin Sodium (Lovenox) 40 mg SC DAILY [facility] PRN Reason: Protocol Levetiracetam (Keppra) 500 mg PO BID [facility] Last Admin: 07/04/18 10:50 Dose: 500 mg Memantine (Namenda) 10 mg PO DAILY [facility] Last Admin: 07/04/18 10:50 Dose: 10 mg Metoprolol Tartrate (Lopressor) 25 mg PO BID [facility] Last Admin: 07/04/18 10:50 Dose: 25 mg Mirtazapine (Remeron) 30 mg PO HS [facility] Morphine Sulfate (Morphine) 2 mg IVP Q4H PRN PRN Reason: Pain, severe (8-10) Last Admin: 07/04/18 14:23 Dose: 2 mg Ondansetron HCl (Zofran Inj) 4 mg IVP Q4H PRN PRN Reason: Nausea/Vomiting Quetiapine Fumarate (Seroquel) 50 mg PO HS [facility] PRN Reason: Protocol Last Admin: 07/03/18 21:25 Dose: 50 mg - Labs Labs: 07/04/18 13:10 07/04/18 06:20 PT 11.6 SECONDS (9.4-12.5) 07/02/18 14:25 INR 1.01 07/02/18 14:25 APTT 25.7 Seconds (25.1-36.5) 07/02/18 14:25 - Constitutional Appears: Non-toxic, No Acute Distress - Head Exam Head Exam: ATRAUMATIC, NORMAL INSPECTION, NORMOCEPHALIC - ENT Exam ENT Exam: Mucous Membranes Moist, Normal Exam - Respiratory Exam Respiratory Exam: Clear to Ausculation Bilateral, NORMAL BREATHING PATTERN - Cardiovascular Exam Cardiovascular Exam: RRR, +S1, +S2 - GI/Abdominal Exam GI & Abdominal Exam: Soft, Normal Bowel Sounds. absent: Tenderness - Extremities Exam Additional comments: Both legs in immobilizer - Neurological Exam Neurological Exam: Alert, Awake, Oriented x3 - Psychiatric Exam Psychiatric exam: Anxious - Skin Skin Exam: Intact, Normal Color, Warm Assessment and Plan - Assessment and Plan (Free Text) Plan: 1. Left subcapital hip fracture, repaired 2. New onset seizure 3. Alzheimer's disease 4. Hypertension Patient had orthopedic repair of left hip yesterday, successfully. Will continue morphine for pain control. Patient will have Keppra switched from IV to oral. Patient will also continue Namenda, Remron, and Seroquel for alzheimer' s. Patient is a shelter resident of [facility], however patient's daughter does not want patient to go back to that facility. Patient will continue to work with physical therapy until a new facility is found. Olegario, PGY-3 <Aramis Hurtado S - Last Filed: 07/04/18 20:50> Objective - Vital Signs/Intake and Output Vital Signs (last 24 hours): Temp Pulse Resp BP Pulse Ox 98 F 98 H 19 126/64 97 07/04/18 07:00 07/04/18 18:49 07/04/18 18:49 07/04/18 18:49 07/04/18 18:49 - Medications Medications: Current Medications Acetaminophen (Tylenol 325mg Tab) 650 mg PO Q4H PRN PRN Reason: Pain, Mild (1-3) Last Admin: 07/04/18 18:37 Dose: 650 mg Alprazolam (Xanax) 0.5 mg PO HS [facility] PRN Reason: Protocol Stop: 07/10/18 22:01 Last Admin: 07/03/18 21:25 Dose: 0.5 mg Amoxicillin/Clavulanate Potassium (Augmentin 500 Mg-125 Mg Tab) 1 tab PO Q12 [facility] PRN Reason: Protocol Last Admin: 07/04/18 10:50 Dose: 1 tab Enoxaparin Sodium (Lovenox) 40 mg SC DAILY [facility] PRN Reason: Protocol Levetiracetam (Keppra) 500 mg PO BID [facility] Last Admin: 07/04/18 18:37 Dose: 500 mg Memantine (Namenda) 10 mg PO DAILY [facility] Last Admin: 07/04/18 10:50 Dose: 10 mg Metoprolol Tartrate (Lopressor) 25 mg PO BID [facility] Last Admin: 07/04/18 18:37 Dose: 25 mg Mirtazapine (Remeron) 30 mg PO HS [facility] Morphine Sulfate (Morphine) 2 mg IVP Q4H PRN PRN Reason: Pain, severe (8-10) Last Admin: 07/04/18 18:36 Dose: 2 mg Ondansetron HCl (Zofran Inj) 4 mg IVP Q4H PRN PRN Reason: Nausea/Vomiting Quetiapine Fumarate (Seroquel) 50 mg PO HS [facility] PRN Reason: Protocol Last Admin: 07/03/18 21:25 Dose: 50 mg - Labs Labs: 07/04/18 13:10 07/04/18 06:20 PT 11.6 SECONDS (9.4-12.5) 07/02/18 14:25 INR 1.01 07/02/18 14:25 APTT 25.7 Seconds (25.1-36.5) 07/02/18 14:25 Assessment and Plan - Assessment and Plan (Free Text) Plan: Pt seen and examined. I have reviewed the note of the nurses medical assistants phlebotomists and agree with it. I have discussed the assessment and plan with the resident. I have reviewed the patient's labs and medications. Pt s/p L hip fx. She had a fever yesterday. Pain is controlled. Will need to go back to [facility] BP is controlled. D/C IVF.
--- NOTE | 2018-07-04 17:14 | RAD ---
Date of service: 07/04/2018 HISTORY: fever COMPARISON: 07/02/2018. FINDINGS: LUNGS: Stable right lower lobe pulmonary mass. PLEURA: No significant pleural effusion identified, no pneumothorax apparent. CARDIOVASCULAR: Normal. OSSEOUS STRUCTURES: No significant abnormalities. VISUALIZED UPPER ABDOMEN: Normal. OTHER FINDINGS: None IMPRESSION: No acute findings related to/accounting for the clinical presentation. No significant interval change compared to the prior examination(s).
--- NOTE | 2018-07-04 18:53 | US ---
HISTORY: Leg pain and swelling. Evaluate for DVT PHYSICIAN(S): Kyle Kathleen MD. TECHNIQUE: Duplex sonography and color-flow Doppler with graded compression were used to evaluate the deep venous systems of both lower extremities. FINDINGS: The visualized deep venous systems of both lower extremities are sonographically normal and compressible. Normal wave forms and augmentation are seen. There is no sonographic evidence for deep venous thrombosis in the visualized segments of both lower extremities. IMPRESSION: No sonographic evidence for deep venous thrombosis in the visualized segments of both lower extremities.
[2018-07-05 07:13] LABS: HEMOGLOBIN 9.4 g/dL (12.0-16.0); MEAN CELL VOLUME 88.6 fl (80.0-105.0); MEAN CORPUSCULAR HGB CONC 32.8 g/dl (31.0-37.0); MEAN PLATELET VOLUME 10.1 fl (7.0-11.0); RBC 3.24 10^6/uL (3.5-6.1); RED CELL DISTRIBUTION WIDTH 13.4 % (11.5-14.5); WHITE BLOOD COUNT 10.3 10^3/ul (4.5-11.0)
[2018-07-05 07:29] LABS: ALB/GLOB RATIO 0.9 (1.1-1.8); ALBUMIN 2.8 g/dL (3.0-4.8); ALT/SGPT 22 U/L (7-56); AST/SGOT 38 U/L (14-36); BLOOD UREA NITROGEN 13 mg/dL (7-21); GFR NON-AFRICAN AMERICAN > 60
--- NOTE | 2018-07-05 08:07 | CP.PCM.CON ---
<Laya Oliva - Last Filed: 07/05/18 13:52> History of Present Illness - History of Present Illness History of Present Illness: Pgy3 ID Consult note for Dr. Rodgers Reason for consult: fever Please note history as per EMR as patient is a poor historian 77yo female PMHx Alzheimer's dementia and HTN presented to the ER after being found on the ground with seizure-like activity at her long term. Patient was found to have a displaced left subcapital hip fracture and was taken to the OR on 07/[address] Mora. Patient had a left bipolar hip prosthesis and tolerated procedure well. X-ray of the L hip s/p OR showed satisfactory alignment of the left hip prosthesis. After the procedure patient started to have objective fevers with Tmax 103.1F. This AM patient was seen and examined sitting up in chair. She was ao x 1. Patient denied any pain. Complete ROS unobtainable secondary to baseline dementia. PMHx: Alzheimer's disease, HTN PSurgHx: none SocHx: no hx of alcohol abuse Meds: pls see chart ALL: NKDA Review of Systems - Review of Systems Systems not reviewed;Unavailable: Dementia All systems: reviewed and no additional remarkable complaints except Review of Systems: as per HPI Past Patient History - Infectious Disease Hx of Infectious Diseases: None - Tetanus Immunizations Tetanus Immunization: Unknown - Past Medical History & Family History Past Medical History?: Yes - Past Social History Smoking Status: Never Smoked - CARDIAC Hx Cardiac Disorders: Yes Hx Hypercholesterolemia: Yes Hx Hypertension: Yes - PULMONARY Hx Chronic Obstructive Pulmonary Disease (COPD): (daughter denies) - NEUROLOGICAL Hx Alzheimer's Disease: Yes (dx about 3 yrs ago) Hx Dementia: Yes (dx about 3 yrs ago) Hx Dizziness: Yes (vertigo) Other/Comment: pt "sundown's", wanders, has had hallucinations in the past, agitation, memory loss, confusion, as per daughter - HEENT Hx HEENT Problems: No - RENAL Hx Chronic Kidney Disease: No - ENDOCRINE/METABOLIC Hx Endocrine Disorders: No - HEMATOLOGICAL/ONCOLOGICAL Hx Blood Disorders: No Hx Cancer: No - INTEGUMENTARY Hx Dermatological Problems: Yes Hx Eczema: Yes Other/Comment: dry patches of skin over body from eczema, small 1cm round red area of skin above left knee - MUSCULOSKELETAL/RHEUMATOLOGICAL Hx Falls: Yes (found on floor today) - GASTROINTESTINAL Hx Gastrointestinal Disorders: No - GENITOURINARY/GYNECOLOGICAL Hx Genitourinary Disorders: Yes (negative mammo abouot 5 yrs ago) Hx Sexually Transmitted Disorders: No - PSYCHIATRIC Hx Substance Use: No - SURGICAL HISTORY Hx Surgeries: No Meds Allergies/Adverse Reactions: Allergies Allergy/AdvReac Type Severity Reaction Status Date / Time No Known Allergies Allergy Verified 07/11/14 08:32 - Medications Medications: Current Medications Acetaminophen (Tylenol 325mg Tab) 650 mg PO Q4H PRN PRN Reason: Pain, Mild (1-3) Last Admin: 07/05/18 05:29 Dose: 650 mg Alprazolam (Xanax) 0.5 mg PO HS [facility] PRN Reason: Protocol Stop: 07/10/18 22:01 Last Admin: 07/04/18 21:40 Dose: 0.5 mg Enoxaparin Sodium (Lovenox) 40 mg SC DAILY [facility] PRN Reason: Protocol Vancomycin HCl (Vancomycin 1gm) 1 gm in 250 mls @ 167 mls/hr IVPB Q12H [facility] PRN Reason: Protocol Piperacillin Sod/Tazobactam Sod (Zosyn 3.375 In Ns 100ml) 100 mls @ 200 mls/hr IVPB Q6 [facility] PRN Reason: Protocol Stop: 07/12/18 07:30 Levetiracetam (Keppra) 500 mg PO BID [facility] Last Admin: 07/04/18 18:37 Dose: 500 mg Memantine (Namenda) 10 mg PO DAILY [facility] Last Admin: 07/04/18 10:50 Dose: 10 mg Metoprolol Tartrate (Lopressor) 25 mg PO BID [facility] Last Admin: 07/04/18 18:37 Dose: 25 mg Mirtazapine (Remeron) 30 mg PO HS [facility] Last Admin: 07/04/18 21:40 Dose: 30 mg Morphine Sulfate (Morphine) 2 mg IVP Q4H PRN PRN Reason: Pain, severe (8-10) Last Admin: 07/04/18 18:36 Dose: 2 mg Ondansetron HCl (Zofran Inj) 4 mg IVP Q4H PRN PRN Reason: Nausea/Vomiting Quetiapine Fumarate (Seroquel) 50 mg PO HS [facility] PRN Reason: Protocol Last Admin: 07/04/18 21:40 Dose: 50 mg Physical Exam - Constitutional Appears: Non-toxic, No Acute Distress - Head Exam Head Exam: ATRAUMATIC, NORMAL INSPECTION, NORMOCEPHALIC - Eye Exam Eye Exam: EOMI. absent: Conjunctival injection, Scleral icterus - ENT Exam ENT Exam: Mucous Membranes Moist - Respiratory Exam Respiratory Exam: Clear to Auscultation Bilateral, NORMAL BREATHING PATTERN. absent: Accessory Muscle Use, Rales, Rhonchi, Wheezes, Respiratory Distress - Cardiovascular Exam Cardiovascular Exam: Tachycardia, +S1, +S2 - GI/Abdominal Exam GI & Abdominal Exam: Normal Bowel Sounds, Soft. absent: Firm, Tenderness - Extremities Exam Additional comments: Left hip bandaged - Neurological Exam Neurological exam: Alert - Psychiatric Exam Psychiatric exam: Normal Affect, Normal Mood - Skin Skin Exam: Dry, Warm Results - Vital Signs Recent Vital Signs: Last Vital Signs Temp 103.1 F H 07/05/18 05:29 Pulse 98 H 07/04/18 18:49 Resp 19 07/04/18 18:49 BP 126/64 07/04/18 18:49 Pulse Ox 97 07/04/18 18:49 - Labs Result Diagrams: 07/05/18 06:45 07/05/18 06:45 Labs: Laboratory Results - last 24 hr 07/04/18 07/04/18 07/05/18 06:20 13:10 06:45 WBC 11.5 H D RBC 3.59 Hgb 10.6 L Hct 32.2 L MCV 89.7 MCH 29.5 MCHC 32.9 RDW 13.4 Plt Count 212 MPV 9.9 Gran % 79.6 H Lymph % (Auto) 12.2 L [place] % (Auto) 8.0 H Eos % (Auto) 0.2 L Baso % (Auto) 0.0 Gran # 9.11 H Lymph # (Auto) 1.4 [place] # (Auto) 0.9 H Eos # (Auto) 0.0 Baso # (Auto) 0.00 Sodium 135 Potassium 3.9 Chloride 103 Carbon Dioxide 27 Anion Gap 9 L BUN 13 Creatinine 0.8 Est GFR ( Amer) > 60 Est GFR (Non-Af Amer) > 60 Random Glucose 165 H Hemoglobin A1c 6.4 Calcium 8.0 L Total Bilirubin 1.0 AST 38 H ALT 22 Alkaline Phosphatase 72 Total Protein 5.9 Albumin 2.8 L Globulin 3.0 Albumin/Globulin Ratio 0.9 L 07/05/18 06:45 WBC 10.3 RBC 3.24 L Hgb 9.4 L Hct 28.7 L MCV 88.6 MCH 29.0 MCHC 32.8 RDW 13.4 Plt Count 209 MPV 10.1 Gran % Lymph % (Auto) [place] % (Auto) Eos % (Auto) Baso % (Auto) Gran # Lymph # (Auto) [place] # (Auto) Eos # (Auto) Baso # (Auto) Sodium Potassium Chloride Carbon Dioxide Anion Gap BUN Creatinine Est GFR ( Amer) Est GFR (Non-Af Amer) Random Glucose Hemoglobin A1c Calcium Total Bilirubin AST ALT Alkaline Phosphatase Total Protein Albumin Globulin Albumin/Globulin Ratio Assessment & Plan - Assessment and Plan (Free Text) Assessment: 77yo female PMHx Alzheimer's dementia and HTN presented to the ER after being found on the ground with seizure-like activity at her long term. Patient was found to have a displaced left subcapital hip fracture and was taken to the OR on 07/[address] Mora. Patient had a left bipolar hip prosthesis and tolerated procedure well. ID consulted for fever with Tmax 103F Plan: -f/u repeat CXR this AM CXR 07/04: unremarkable -duplex LE negative for DVT b/l -f/u blood cx, urine cx, and procalcitonin -continue vancomycin and zosyn -monitor closely -continue management as per primary ID will continue to follow Discussed with Dr. Ana Maria Oliva PGY3 <Sven Rodgers - Last Filed: 07/05/18 16:16> Meds - Medications Medications: Current Medications Acetaminophen (Tylenol 325mg Tab) 650 mg PO Q4H PRN PRN Reason: Pain, Mild (1-3) Last Admin: 07/05/18 05:29 Dose: 650 mg Alprazolam (Xanax) 0.5 mg PO HS [facility] PRN Reason: Protocol Stop: 07/10/18 22:01 Last Admin: 07/04/18 21:40 Dose: 0.5 mg Enoxaparin Sodium (Lovenox) 40 mg SC DAILY [facility] PRN Reason: Protocol Last Admin: 07/05/18 09:16 Dose: 40 mg Vancomycin HCl (Vancomycin 1gm) 1 gm in 250 mls @ 167 mls/hr IVPB Q12H [facility] PRN Reason: Protocol Last Admin: 07/05/18 10:21 Dose: 167 mls/hr Piperacillin Sod/Tazobactam Sod (Zosyn 3.375 In Ns 100ml) 100 mls @ 200 mls/hr IVPB Q6 [facility] PRN Reason: Protocol Stop: 07/12/18 07:30 Last Admin: 07/05/18 12:09 Dose: 200 mls/hr Levetiracetam (Keppra) 500 mg PO BID [facility] Last Admin: 07/05/18 09:16 Dose: 500 mg Memantine (Namenda) 10 mg PO DAILY [facility] Last Admin: 07/05/18 09:16 Dose: 10 mg Metoprolol Tartrate (Lopressor) 25 mg PO BID [facility] Last Admin: 07/05/18 09:16 Dose: 25 mg Mirtazapine (Remeron) 30 mg PO HS [facility] Last Admin: 07/04/18 21:40 Dose: 30 mg Morphine Sulfate (Morphine) 2 mg IVP Q4H PRN PRN Reason: Pain, severe (8-10) Last Admin: 07/05/18 09:48 Dose: 2 mg Ondansetron HCl (Zofran Inj) 4 mg IVP Q4H PRN PRN Reason: Nausea/Vomiting Quetiapine Fumarate (Seroquel) 50 mg PO HS [facility] PRN Reason: Protocol Last Admin: 07/04/18 21:40 Dose: 50 mg Results - Vital Signs Recent Vital Signs: Last Vital Signs Temp 99.3 F 07/05/18 07:00 Pulse 97 H 07/05/18 09:16 Resp 19 07/05/18 06:00 BP 125/68 07/05/18 09:16 Pulse Ox 95 07/05/18 06:00 - Labs Result Diagrams: 07/05/18 06:45 07/05/18 06:45 Labs: Laboratory Results - last 24 hr 07/05/18 07/05/18 06:45 06:45 WBC 10.3 RBC 3.24 L Hgb 9.4 L Hct 28.7 L MCV 88.6 MCH 29.0 MCHC 32.8 RDW 13.4 Plt Count 209 MPV 10.1 Sodium 135 Potassium 3.9 Chloride 103 Carbon Dioxide 27 Anion Gap 9 L BUN 13 Creatinine 0.8 Est GFR ( Amer) > 60 Est GFR (Non-Af Amer) > 60 Random Glucose 165 H Calcium 8.0 L Total Bilirubin 1.0 AST 38 H ALT 22 Alkaline Phosphatase 72 Total Protein 5.9 Albumin 2.8 L Globulin 3.0 Albumin/Globulin Ratio 0.9 L Assessment & Plan - Assessment and Plan (Free Text) Plan: Infectious Diseases Attending Physician Addendum Patient seen and examined, discussed with medical legal investigator. I have reviewed the pertinent clinical information for the patient, including history of present illness, medical, personal and social histories, lab results and imaging findings. I agree with the above findings, assessment and plan. In addition, patient presenting with post-op fever and SIRS, source to be determined. Just underwent left hip surgery for fracture. Follow up blood cx, urine cx, repeat CXR. Will need to monitor surgical site.
--- NOTE | 2018-07-05 08:19 | PN ---
DATE: 07/04/2018 Addendum to the initial progress note dictated this morning. The patient was seen, discussed with daughter Jane who is a nurse. Postop, the patient is stable. Continue low dose beta-kendall as started yesterday. Continue rehab. We will sign off and glad to follow daren. Thank you, Dr. Hurtado, for providing us the opportunity in taking care of the patient, Bre Briggs. We will follow daren. Dia Daniel MD
[2018-07-05] MEDS: Piperacillin/Tazobact 3.375 gm 100 ML IVPB SCH ×4 (09:13→23:45)
[2018-07-05] MEDS: Enoxaparin 40 mg Syringe SC SCH (09:16)
[2018-07-05] MEDS: Morphine 2 mg/ml ISec IVP PRN ×2 (09:48→21:54)
[2018-07-05] MEDS: Vancomycin 1gm in NS 250ml 1 GM/250 ML BAG IVPB SCH ×2 (10:21→21:54)
--- NOTE | 2018-07-05 11:06 | CP.PCM.PN ---
<Stone Melvin - Last Filed: 07/05/18 11:02> Subjective - Date & Time of Evaluation Date of Evaluation: 07/05/18 Time of Evaluation: 11:02 - Subjective Subjective: Patient seen and examined at bedside. No acute events overnight. Patient had a fever of 103.1 this morning. Objective - Vital Signs/Intake and Output Vital Signs (last 24 hours): Temp Pulse Resp BP Pulse Ox 103.1 F H 97 H 19 125/68 95 07/05/18 06:00 07/05/18 09:16 07/05/18 06:00 07/05/18 09:16 07/05/18 06:00 - Medications Medications: Current Medications Acetaminophen (Tylenol 325mg Tab) 650 mg PO Q4H PRN PRN Reason: Pain, Mild (1-3) Last Admin: 07/05/18 05:29 Dose: 650 mg Alprazolam (Xanax) 0.5 mg PO HS [facility] PRN Reason: Protocol Stop: 07/10/18 22:01 Last Admin: 07/04/18 21:40 Dose: 0.5 mg Enoxaparin Sodium (Lovenox) 40 mg SC DAILY [facility] PRN Reason: Protocol Last Admin: 07/05/18 09:16 Dose: 40 mg Vancomycin HCl (Vancomycin 1gm) 1 gm in 250 mls @ 167 mls/hr IVPB Q12H [facility] PRN Reason: Protocol Last Admin: 07/05/18 10:21 Dose: 167 mls/hr Piperacillin Sod/Tazobactam Sod (Zosyn 3.375 In Ns 100ml) 100 mls @ 200 mls/hr IVPB Q6 [facility] PRN Reason: Protocol Stop: 07/12/18 07:30 Last Admin: 07/05/18 09:13 Dose: 200 mls/hr Levetiracetam (Keppra) 500 mg PO BID [facility] Last Admin: 07/05/18 09:16 Dose: 500 mg Memantine (Namenda) 10 mg PO DAILY [facility] Last Admin: 07/05/18 09:16 Dose: 10 mg Metoprolol Tartrate (Lopressor) 25 mg PO BID [facility] Last Admin: 07/05/18 09:16 Dose: 25 mg Mirtazapine (Remeron) 30 mg PO HS [facility] Last Admin: 07/04/18 21:40 Dose: 30 mg Morphine Sulfate (Morphine) 2 mg IVP Q4H PRN PRN Reason: Pain, severe (8-10) Last Admin: 07/05/18 09:48 Dose: 2 mg Ondansetron HCl (Zofran Inj) 4 mg IVP Q4H PRN PRN Reason: Nausea/Vomiting Quetiapine Fumarate (Seroquel) 50 mg PO HS [facility] PRN Reason: Protocol Last Admin: 07/04/18 21:40 Dose: 50 mg - Labs Labs: 07/05/18 06:45 07/05/18 06:45 PT 11.6 SECONDS (9.4-12.5) 07/02/18 14:25 INR 1.01 07/02/18 14:25 APTT 25.7 Seconds (25.1-36.5) 07/02/18 14:25 - Constitutional Appears: Non-toxic, No Acute Distress - Head Exam Head Exam: ATRAUMATIC, NORMAL INSPECTION, NORMOCEPHALIC - ENT Exam ENT Exam: Mucous Membranes Moist - Respiratory Exam Respiratory Exam: Clear to Ausculation Bilateral, NORMAL BREATHING PATTERN - Cardiovascular Exam Cardiovascular Exam: RRR, +S1, +S2 - GI/Abdominal Exam GI & Abdominal Exam: Soft, Normal Bowel Sounds. absent: Tenderness - Extremities Exam Extremities Exam: absent: Pedal Edema Additional comments: Left hip bandaged - Neurological Exam Neurological Exam: Alert, Awake. absent: Oriented x3 - Psychiatric Exam Psychiatric exam: Normal Affect, Normal Mood - Skin Skin Exam: Intact, Normal Color, Warm Assessment and Plan - Assessment and Plan (Free Text) Plan: 1. Left subcapital hip fracture, repaired 2. New onset seizure 3. Alzheimer's disease 4. Hypertension Patient with fever overnight. Blood and urine cultures pending. Patient had chest x-ray which was negative for acute pathology. Patient also had lower extremity ultrasound which was negative for DVT. ID has been consulted. Patient started on vancomycin and zosyn. We will continue Morphine for pain. Patient will continue Keppra for seizures. Patient will also continue Namenda, Remron, and Seroquel for alzheimer's. Olegario, PGY-3 <Aramis Hurtado - Last Filed: 07/05/18 17:35> Objective - Vital Signs/Intake and Output Vital Signs (last 24 hours): Temp Pulse Resp BP Pulse Ox 101.1 F H 98 H 19 126/64 97 07/05/18 17:03 07/05/18 17:16 07/05/18 17:16 07/05/18 17:16 07/05/18 17:16 - Medications Medications: Current Medications Acetaminophen (Tylenol 325mg Tab) 650 mg PO Q4H PRN PRN Reason: Pain, Mild (1-3) Last Admin: 07/05/18 17:03 Dose: 650 mg Alprazolam (Xanax) 0.5 mg PO HS [facility] PRN Reason: Protocol Stop: 07/10/18 22:01 Last Admin: 07/04/18 21:40 Dose: 0.5 mg Enoxaparin Sodium (Lovenox) 40 mg SC DAILY [facility] PRN Reason: Protocol Last Admin: 07/05/18 09:16 Dose: 40 mg Vancomycin HCl (Vancomycin 1gm) 1 gm in 250 mls @ 167 mls/hr IVPB Q12H [facility] PRN Reason: Protocol Last Admin: 07/05/18 10:21 Dose: 167 mls/hr Piperacillin Sod/Tazobactam Sod (Zosyn 3.375 In Ns 100ml) 100 mls @ 200 mls/hr IVPB Q6 [facility] PRN Reason: Protocol Stop: 07/12/18 07:30 Last Admin: 07/05/18 17:11 Dose: 200 mls/hr Levetiracetam (Keppra) 500 mg PO BID [facility] Last Admin: 07/05/18 17:04 Dose: 500 mg Memantine (Namenda) 10 mg PO DAILY [facility] Last Admin: 07/05/18 09:16 Dose: 10 mg Metoprolol Tartrate (Lopressor) 25 mg PO BID [facility] Last Admin: 07/05/18 17:03 Dose: 25 mg Mirtazapine (Remeron) 30 mg PO HS [facility] Last Admin: 07/04/18 21:40 Dose: 30 mg Morphine Sulfate (Morphine) 2 mg IVP Q4H PRN PRN Reason: Pain, severe (8-10) Last Admin: 07/05/18 09:48 Dose: 2 mg Ondansetron HCl (Zofran Inj) 4 mg IVP Q4H PRN PRN Reason: Nausea/Vomiting Quetiapine Fumarate (Seroquel) 50 mg PO HS [facility] PRN Reason: Protocol Last Admin: 07/04/18 21:40 Dose: 50 mg - Labs Labs: 07/05/18 06:45 07/05/18 06:45 PT 11.6 SECONDS (9.4-12.5) 07/02/18 14:25 INR 1.01 07/02/18 14:25 APTT 25.7 Seconds (25.1-36.5) 07/02/18 14:25 Assessment and Plan - Assessment and Plan (Free Text) Plan: Pt seen and examined. Agree with the note of the biomedical technician. Labs and medications have been reviewed. Pt with fever. She had BCx and UCx done. US is negative. She was started on IV Abx. Spoke to daughter, Jane, update pt. If pt improves then she can be discharged. She is interested in going to [facility].
--- NOTE | 2018-07-05 13:37 | RAD ---
Date of service: 07/05/2018 HISTORY: temp 103F COMPARISON: 07/04/2018 FINDINGS: LUNGS: No active pulmonary disease. No change in 2 cm nodule right lower lobe PLEURA: No significant pleural effusion identified, no pneumothorax apparent. CARDIOVASCULAR: Normal. OSSEOUS STRUCTURES: No significant abnormalities. VISUALIZED UPPER ABDOMEN: Normal. OTHER FINDINGS: None. IMPRESSION: No active disease.
[2018-07-06] MEDS: Piperacillin/Tazobact 3.375 gm 100 ML IVPB SCH ×4 (05:55→23:26)
[2018-07-06 06:31] LABS: BASO # 0.01 K/mm3 (0.0-2.0); BASO % 0.1 % (0.0-3.0); EOS # 0.2 (0.0-0.7); EOS % 1.9 % (1.5-5.0); GRAN # 6.52 (1.4-6.5); GRAN % 70.5 % (50.0-68.0); HEMOGLOBIN 9.4 g/dL (12.0-16.0); LYMPH # 1.8 (1.2-3.4); LYMPH % 18.9 % (22.0-35.0); MEAN CELL VOLUME 88.6 fl (80.0-105.0); MEAN CORPUSCULAR HEMOGLOBIN 29.7 pg (25.0-35.0); MEAN CORPUSCULAR HGB CONC 33.6 g/dl (31.0-37.0); MEAN PLATELET VOLUME 9.8 fl (7.0-11.0); MONO # 0.8 (0.1-0.6); MONO % 8.6 % (1.0-6.0); RBC 3.16 10^6/uL (3.5-6.1); RED CELL DISTRIBUTION WIDTH 13.2 % (11.5-14.5); WHITE BLOOD COUNT 9.3 10^3/ul (4.5-11.0)
[2018-07-06 06:42] LABS: ALB/GLOB RATIO 0.9 (1.1-1.8); ALBUMIN 2.8 g/dL (3.0-4.8); ALT/SGPT 22 U/L (7-56); AST/SGOT 31 U/L (14-36); BLOOD UREA NITROGEN 12 mg/dL (7-21); CALCIUM 8.1 mg/dL (8.4-10.5); GFR NON-AFRICAN AMERICAN > 60
[2018-07-06] MEDS: Vancomycin 1gm in NS 250ml 1 GM/250 ML BAG IVPB SCH ×2 (09:47→20:30)
[2018-07-06] MEDS: Enoxaparin 40 mg Syringe SC SCH (09:47)
[2018-07-06] MEDS: Morphine 2 mg/ml ISec IVP PRN (09:49)
--- NOTE | 2018-07-06 14:34 | PN ---
DATE: 07/06/2018 SUBJECTIVE: The patient is in bed, in no acute distress. PHYSICAL EXAMINATION: VITAL SIGNS: Temperature is 101, blood pressure is 122/60, respiratory rate of 20, heart rate of 93. HEENT: Unremarkable. NECK: Supple. LUNGS: Have decreased breath sounds. HEART: Normal S1, S2. ABDOMEN: Soft, nontender. LABORATORY DATA: Reveals a white count of 9.3, hemoglobin of 9, platelets of 233. Chemistries reveal a BUN of 12, creatinine of 0.8, procalcitonin 0.14. Urinalysis is noted. Toxicology is noted. Microbiology reveals the blood cultures are no growth. Chest x-ray reveals no active disease. ASSESSMENT AND PLAN: This is a 77-year-old female with a history of Alzheimer dementia, at the [facility], hypertension, with a left hip fracture, was taken to the OR on 07/03, had a surgery and postoperatively, the patient has now systemic inflammatory response syndrome with fever and tachycardia, heart rate of 93 with chest x-ray from yesterday morning with no active disease and cultures, which are pending. Blood cultures, no growth at 24 hours. Urine cultures are pending. The patient with a procalcitonin from yesterday which is normal. Etiology of the fever is not entirely clear, on vancomycin and Zosyn. We will follow with you. Case discussed with the patient's daughter who a nurse. We will follow closely with you. Theodore Romero MD
[2018-07-06] MEDS: POLYETHYLENE GLYCOL 3350 17 GM/Dose PACKET PO SCH (17:51)
--- NOTE | 2018-07-06 23:13 | PN ---
DATE: 07/06/2018 SUBJECTIVE: She is comfortable in bed. No acute distress. She developed 101 fever today at 09:30 a.m. She is currently on IV antibiotics. She underwent left hip repair for fracture on 07/03/2018, developed fever postop. Currently on IV antibiotics as per Dr. Romero, on Zosyn and vancomycin. Blood culture, urine culture have been negative so far. Chest x-ray done yesterday, no active disease. REVIEW OF SYSTEMS: As per HPI. Rest of 12-point review of systems reviewed, negative. MEDICATIONS: Tylenol 650 every 4 hours p.r.n., Xanax 0.5 mg at bedtime, Lovenox 40 mg subcu daily, Keppra 500 mg p.o. b.i.d., Namenda 10 mg daily, metoprolol 25 mg p.o. b.i.d., Remeron 30 mg p.o. at bedtime, morphine 2 mg every 4 hours p.r.n., Zofran 4 mg every 4 hours p.r.n., Zosyn, vancomycin, Seroquel 50 mg p.o. at bedtime and MiraLax 17 g p.o. b.i.d. LABORATORY DATA: White count 9.3, hemoglobin 9.4, hematocrit 28, platelet 233. Sodium 136, potassium 4.1, creatinine 0.8, total bilirubin 0.9, prolactin 0.14. PHYSICAL EXAMINATION: GENERAL: Comfortable in bed, in no acute distress. VITAL SIGNS: T-max was 101.1, heart rate is 100 per minute, blood pressure 102/91, respiratory rate 18 per minute, oxygen saturation 98% on room air. HEENT: Pallor positive. NECK: No lymphadenopathy. CHEST: Air entry present, equal and bilateral. No added sounds. CARDIOVASCULAR: S1, S2 normal. No murmur. No gallop. ABDOMEN: Soft, nontender. No hepatosplenomegaly. EXTREMITIES: No edema. CENTRAL NERVOUS SYSTEM: Alert and oriented x3. No focal sensorimotor deficit. ASSESSMENT: 1. Left hip fracture, status post repair. 2. Fever. 3. Anemia. 4. Alzheimer dementia. PLAN: We will continue current treatment. Continue IV antibiotics as per Dr. Romero. Cultures negative so far. Chest x-ray recent, no infiltrate. Continue Lovenox prophylaxis 40 mg subcu daily, Namenda 10 mg daily, Lopressor 25 mg p.o. b.i.d., Remeron 30 mg p.o. at bedtime. Pain controlled with current dose of morphine. We will recommend MiraLax 17 g p.o. b.i.d., Seroquel 40 mg p.o. at bedtime. Labs ordered for the a.m., folic acid, iron studies, B12 level for anemia. Continue Nina. Neurology following. Kaylee Berrios MD MTDChinyere
[2018-07-07] MEDS: Piperacillin/Tazobact 3.375 gm 100 ML IVPB SCH (05:34)
[2018-07-07 08:18] LABS: EOS # 0.3 (0.0-0.7); EOS % 3.1 % (1.5-5.0); GRAN # 5.63 (1.4-6.5); GRAN % 64.8 % (50.0-68.0); HEMOGLOBIN 8.8 g/dL (12.0-16.0); LYMPH # 1.8 (1.2-3.4); LYMPH % 20.4 % (22.0-35.0); MEAN CELL VOLUME 88.4 fl (80.0-105.0); MEAN CORPUSCULAR HEMOGLOBIN 29.1 pg (25.0-35.0); MONO % 11.7 % (1.0-6.0); RBC 3.02 10^6/uL (3.5-6.1); RED CELL DISTRIBUTION WIDTH 13.3 % (11.5-14.5); WHITE BLOOD COUNT 8.7 10^3/ul (4.5-11.0)
--- NOTE | 2018-07-07 08:57 | PN ---
DATE: 07/07/2018 FOLLOWUP NOTE SUBJECTIVE: She is comfortable in bed, in no acute distress. Yesterday, she had a temperature of 101.1 in the morning around 10 o'clock. Since then, she has been afebrile. Currently, on IV antibiotics as per Dr. Romero, Zosyn and vancomycin. Denies any pain. REVIEW OF SYSTEMS: As per HPI. Rest of 12-point review of systems reviewed negative. MEDICATIONS: Tylenol 650 every 6 hours p.r.n., Xanax 0.5 mg at bedtime, Keppra 500 mg p.o. b.i.d., Namenda 10 mg daily, metoprolol 25 mg p.o. b.i.d., Lovenox 40 subcutaneous daily, Remeron 30 mg p.o. at bedtime, morphine 2 mg every 4 hours p.r.n. for pain, Zofran p.r.n., vancomycin and Zosyn, Seroquel 50 mg at bedtime, MiraLax 17 g p.o. b.i.d. LABORATORY DATA: White count 8.7, hemoglobin 8.8, hematocrit 26.7, platelet 298. Sodium 136, potassium 4.1, creatinine 0.8. Blood culture, no growth. ASSESSMENT: 1. Anemia. Hemoglobin declined to 8.8. Yesterday, it was 9.4. 2. Status post left hip repair. 3. Fever, sepsis. 4. Alzheimer's dementia. PLAN: We will continue IV antibiotic, Zosyn and vancomycin. Dr. Romero following. Continue DVT prophylaxis with Lovenox 40 subcutaneous daily, Namenda 10 mg daily, Lopressor 25 mg p.o. b.i.d. We will continue to watch hemoglobin and hematocrit. She will get Seroquel 40 mg at bedtime. Continue Keppra [address] Noonan following. We will send iron studies with a.m. labs. Give one dose of IV iron. Stool occult blood. Kaylee Berrios MD
[2018-07-07 08:59] LABS: IRON 18 ug/dL (45-180)
[2018-07-07 09:08] LABS: % IRON SATURATION 9 % (20-55); TOTAL IRON BINDING CAPACITY 186 ug/dL (265-497)
[2018-07-07 09:14] LABS: ALB/GLOB RATIO 0.9 (1.1-1.8); ALBUMIN 2.8 g/dL (3.0-4.8); CALCIUM 8.1 mg/dL (8.4-10.5)
[2018-07-07] MEDS: POLYETHYLENE GLYCOL 3350 17 GM/Dose PACKET PO SCH ×2 (09:37→16:59)
[2018-07-07] MEDS: Enoxaparin 40 mg Syringe SC SCH (09:38)
[2018-07-07] MEDS: Vancomycin 1gm in NS 250ml 1 GM/250 ML BAG IVPB SCH (10:43)
[2018-07-07] MEDS: Morphine 2 mg/ml ISec IVP PRN ×2 (13:41→18:17)
[2018-07-08] MEDS: Morphine 2 mg/ml ISec IVP PRN (00:59)
[2018-07-08 08:12] LABS: ALBUMIN 3.3 g/dL (3.0-4.8); BLOOD UREA NITROGEN 19 mg/dL (7-21); CALCIUM 8.6 mg/dL (8.4-10.5); GFR NON-AFRICAN AMERICAN 54
[2018-07-08 08:13] VITALS: RESP 20; TEMP 98.2; O2SAT 99
[2018-07-08 08:13] LABS: ALT/SGPT 28 U/L (7-56); AST/SGOT 37 U/L (14-36)
--- NOTE | 2018-07-08 09:39 | PN ---
DATE: 07/07/2018 SUBJECTIVE: The patient is in bed, in no acute distress, nontoxic, was seen earlier today. PHYSICAL EXAMINATION: VITAL SIGNS: The temperature appears to be on downward trend. PHYSICAL EXAMINATION: VITAL SIGNS: On exam, temperature is 98, blood pressure is 150/70, respiratory rate of 18. HEENT: Examination of HEENT is unremarkable. NECK: Supple. LUNGS: Have decreased breath sounds. HEART: Normal S1, S2. ABDOMEN: Soft, nontender. No organomegaly. No rebound. LABORATORY DATA: Laboratory examination reveals a white count of 8.7, hemoglobin of 8. Chemistries are noted. The creatinine is up to 1.3, which is an increase from 0.8 yesterday. Procalcitonin is normal. Urinalysis is noted. Opiates screen is positive. Microbiology reveals blood and urine cultures are negative. Review of orders reveals the patient to be on IV vancomycin and Zosyn. ASSESSMENT AND PLAN: A 77-year-old female, who was seen earlier with history of Alzheimer's dementia, senior care, hypertension, left hip fracture. Taken to the operating room, had surgery, postoperatively and had systemic inflammatory response syndrome, fever and tachycardia. Thus far, the blood cultures no growth. The urine cultures no growth and now with acute kidney injury. We will discontinue the vancomycin. The patient also had a chest x-ray yesterday, which was read as no active disease and had a negative procalcitonin. We will discontinue both antibiotics, vancomycin and Zosyn. Follow the fever curve and order a vancomycin random level for a.m. The patient with acute renal failure. We will order urine for eosinophils and vancomycin random level in a.m. Etiology of the acute kidney injury to be determined. We will also repeat a urinalysis and urine culture. Theodore Romero MD
[2018-07-08] MEDS: POLYETHYLENE GLYCOL 3350 17 GM/Dose PACKET PO SCH ×2 (10:51→17:43)
[2018-07-08] MEDS: Enoxaparin 40 mg Syringe SC SCH (10:51)
[2018-07-08 11:29] LABS: PH,URINE 7.5 (4.7-8.0); URINE BILIRUBIN NEGATIVE (NEGATIVE); URINE BLOOD NEGATIVE (NEGATIVE); URINE GLUCOSE (UA) 250 mg/dL (NEGATIVE); URINE LEUKOCYTE ESTERASE NEGATIVE Leu/uL (NEGATIVE); URINE PROTEIN TRACE mg/dL (<30 mg/dL); URINE UROBILINOGEN 0.2 E.U./dL (<1 E.U./dL)
[2018-07-08 11:33] LABS: URINE APPEARANCE CLEAR (CLEAR); URINE COLOR YELLOW (YELLOW)
[2018-07-08 11:45] LABS: URINE RBC 0 - 2 /hpf (0-2)
[2018-07-08 11:46] LABS: URINE BACTERIA MANY (NEG)
[2018-07-08] MEDS ORDERED: Oxycodone/Acetaminophen 5/325 mg Tab PO PRN (15:28)
[2018-07-08 17:49] VITALS: BP 168/78; PULSE 92
--- NOTE | 2018-07-08 19:17 | CP.PCM.PN ---
Subjective - Date & Time of Evaluation Date of Evaluation: 07/08/18 Time of Evaluation: 12:35 - Subjective Subjective: Had low grade temperatures but not outright fevers, not in distress. Objective - Vital Signs/Intake and Output Vital Signs (last 24 hours): Temp Pulse Resp BP Pulse Ox 98.2 F 91 H 20 160/82 H 99 07/08/18 08:12 07/08/18 10:51 07/08/18 08:12 07/08/18 10:51 07/08/18 08:12 Intake and Output: 07/08/18 07/08/18 06:59 18:59 Intake Total 0 Balance 0 - Medications Medications: Current Medications Acetaminophen (Tylenol 325mg Tab) 650 mg PO Q4H PRN PRN Reason: Pain, Mild (1-3) Last Admin: 07/07/18 20:18 Dose: 650 mg Alprazolam (Xanax) 0.5 mg PO [facility] PRN Reason: Protocol Stop: 07/10/18 22:01 Last Admin: 07/07/18 21:33 Dose: Not Given Enoxaparin Sodium (Lovenox) 40 mg SC DAILY [facility] PRN Reason: Protocol Last Admin: 07/08/18 10:51 Dose: 40 mg Levetiracetam (Keppra) 500 mg PO BID [facility] Last Admin: 07/08/18 10:51 Dose: 500 mg Memantine (Namenda) 10 mg PO DAILY [facility] Last Admin: 07/08/18 10:51 Dose: 10 mg Metoprolol Tartrate (Lopressor) 25 mg PO BID [facility] Last Admin: 07/08/18 10:51 Dose: 25 mg Mirtazapine (Remeron) 30 mg PO [facility] Last Admin: 07/07/18 21:32 Dose: Not Given Morphine Sulfate (Morphine) 2 mg IVP Q4H PRN PRN Reason: Pain, severe (8-10) Last Admin: 07/08/18 00:59 Dose: 2 mg Ondansetron HCl (Zofran Inj) 4 mg IVP Q4H PRN PRN Reason: Nausea/Vomiting Polyethylene Glycol (Miralax) 17 gm PO BID [facility] Last Admin: 07/08/18 10:51 Dose: 17 gm Quetiapine Fumarate (Seroquel) 50 mg PO [facility] PRN Reason: Protocol Last Admin: 07/07/18 21:32 Dose: Not Given - Labs Labs: 07/07/18 07:30 07/08/18 07:30 PT 11.6 SECONDS (9.4-12.5) 07/02/18 14:25 INR 1.01 07/02/18 14:25 APTT 25.7 Seconds (25.1-36.5) 07/02/18 14:25 - Constitutional Appears: Chronically Ill - Head Exam Head Exam: NORMAL INSPECTION - Respiratory Exam Respiratory Exam: Decreased Breath Sounds - Cardiovascular Exam Cardiovascular Exam: +S1, +S2 - GI/Abdominal Exam GI & Abdominal Exam: Soft. absent: Tenderness Assessment and Plan - Assessment and Plan (Free Text) Plan: Assessment post-op fever and SIRS, resolved but no evidence of infection or sepsis dementia left hip fracture S/P surgery Plan continue to monitor off antibiotics since she is at risk for nosocomial infections
--- NOTE | 2018-07-09 08:27 | DS ---
HOSPITAL COURSE: This is a 77-year-old female who had come into the hospital after she had a fall. The patient was found to have a In the left-sided hip fracture. She had ORIF done. She had improvement of her pain. The patient is going back to [facility] where she is a long-term care resident. She has no complaints of any chest pain or shortness of breath. She had a Patel taken out, but required the Patel to be placed back in because of urinary retention. She has no headaches or dizziness. I did speak to the patient's daughter to give an update. OBJECTIVE: VITAL SIGNS: Temperature is 98.2, pulse of 99, blood pressure 137/73, respirations 20. GENERAL: The patient is lying in bed, flat, comfortable. HEENT: No oral lesion. Anicteric sclerae. Moist mucosa. NECK: No JVD, adenopathy, or thyromegaly. CARDIOVASCULAR: S1 and S2, regular. No murmurs, rubs, or gallops. LUNGS: Clear to auscultation bilaterally. No wheeze, rales, or rhonchi. ABDOMEN: Bowel sounds are positive. Soft, nontender and nondistended. EXTREMITIES: No cyanosis, clubbing or edema. ASSESSMENT: 1. Left hip fracture. 2. New-onset seizures. 3. Alzheimer disease. 4. Hypertension. PLAN: The patient is given iron for iron deficiency. She is going to be continued on Keppra 500 mg b.i.d. The patient is on MiraLax for constipation. She is on Percocet for pain. She is on Xanax as needed. Discharged home. Aramis Hurtado MD
--- NOTE | 2018-07-11 09:11 | PQF ---
PROVIDER RESPONSE TEXT: Acute anemia secondary to acute blood loss REVIEWER QUERY TEXT: Anemia Type Anemia is documented in the Medical Record. Please specify the cause (includes suspected or probable cause) Such as: -- Due to acute blood loss -- Due to chronic blood loss -- Due to iron deficiency -- Due to postoperative blood loss -- Due to chronic disease -- Other, please specify The patient's Clinical Indicators include: Anemia documented by Dr. Berrios in 07/07 PN "hemoglobin declined to 8.8" treated with IV iron. Query created by: Marimar Prieto on 07/11/2018 7:44 AM Electronically signed by: Aramis Hurtado MD 07/11/2018 9:08 AM
== END 2018-07-08 19:33 | DRG 470 ==
LOC: ED 13:54 → ERH 16:02 → 3RSO 17:22
PROVIDERS: ADMIT Internal Medicine Nephrology; ATTEND Internal Medicine Nephrology
PROC: 0SRB0JZ Replacement of Left Hip Joint with Synthetic Substitute, Open Approach (ICD-10-PCS; principal; 2018-07-03 10:15)
DX: S72.012A Unspecified intracapsular fracture of left femur, initial encounter for closed fracture (principal); R65.10 Systemic inflammatory response syndrome (SIRS) of non-infectious origin without acute organ dysfunction; N17.9 Acute kidney failure, unspecified; D62 Acute posthemorrhagic anemia; R56.9 Unspecified convulsions; I10 Essential (primary) hypertension; F02.80 Dementia in other diseases classified elsewhere, unspecified severity, without behavioral disturbance, psychotic disturbance, mood disturbance, and anxiety; G30.9 Alzheimer's disease, unspecified; R50.82 Postprocedural fever; J68.3 Other acute and subacute respiratory conditions due to chemicals, gases, fumes and vapors; E78.00 Pure hypercholesterolemia, unspecified; J44.9 Chronic obstructive pulmonary disease, unspecified; W19.XXXA Unspecified fall, initial encounter; Y92.129 Unspecified place in nursing home as the place of occurrence of the external cause

== ENCOUNTER 2018-09-25 18:07 | Observation (INO) | payer MEDICARE, BC ==
[2018-09-25 18:07] VITALS: BMI 25.7
[2018-09-25 18:37] LABS: EOS # 0.1 (0.0-0.7); EOS % 0.9 % (1.5-5.0); GRAN # 5.64 (1.4-6.5); GRAN % 57.9 % (50.0-68.0); HEMOGLOBIN 13.7 g/dL (12.0-16.0); LYMPH # 3.3 (1.2-3.4); LYMPH % 33.9 % (22.0-35.0); MEAN CELL VOLUME 87.7 fl (80.0-105.0); MEAN CORPUSCULAR HEMOGLOBIN 28.6 pg (25.0-35.0); MEAN CORPUSCULAR HGB CONC 32.6 g/dl (31.0-37.0); MEAN PLATELET VOLUME 10.4 fl (7.0-11.0); MONO # 0.7 (0.1-0.6); MONO % 7.3 % (1.0-6.0); RBC 4.79 10^6/uL (3.5-6.1); RED CELL DISTRIBUTION WIDTH 13.9 % (11.5-14.5); WHITE BLOOD COUNT 9.7 10^3/uL (4.5-11.0)
--- NOTE | 2018-09-25 18:46 | ED PDOC ---
Arrival/HPI - General Historian: Intermediate (RN at [facility] ) - History of Present Illness Narrative History of Present Illness (Text): 09/25/18 18:35 77 y o female Past medical history HTN, Alzheimer's disease, presents to Emergency department BiBEMS from [facility] for witnessed seizure by staff. Spoke with RN over phone at [facility] who witnessed seizure, states that pt was seated on couch in TV room when episode occurred. Pt had fixed gaze, without blinking, and was unresponsive to commands or orientation. No abnormal movements were witnessed. Episode lasted for 3 mins, resolved without medication administered. Pt was disoriented after seizure ended, and thus staff called EMS to bring her to the Emergency department. Also per staff, pt had Keppra stopped 3 days ago due to pt not having good PO intake; the poor PO intake resolved after Keppra was d/c'd. Pt was recently admitted back in Jun 2018 for seizure work-up and tx of hip fracture. Further ROS and prior medical history unobtainable due to pt's current mental status. Current meds as per snf records: Xanax 0.25 mg in am, 0.5 mg at bedtime; Melatonin; Memantine 10 mg q d; Lopressor 25 mg bid; Mirtazapine 30 mg at bedtime; MVT; Miralax bid; Seroquel 50 mg at bedtime; Vit B12 1000 mcg q d; Tylenol prn; Percocet prn PMD: Dr. Marin Time/Duration: Prior to Arrival Symptom Onset: Sudden Symptom Course: Resolved Quality: Unable to Describe Activities at Onset: Rest Context: Other (at snf watching TV) <Manuel Webber - Last Filed: 09/25/18 19:19> <Grisel Abdul - Last Filed: 09/25/18 20:16> - General Chief Complaint: Seizure Time Seen by Provider: 09/25/18 18:10 Past Medical History - Provider Review Nursing Documentation Reviewed: Yes - Infectious Disease Hx of Infectious Diseases: None - Tetanus Immunization Tetanus Immunization: Unknown - Cardiac Hx Cardiac Disorders: Yes Hx Hypertension: Yes - Pulmonary Hx Chronic Obstructive Pulmonary Disease (COPD): (daughter denies) - Neurological Hx Alzheimer's Disease: Yes (dx about 3 yrs ago) Hx Dementia: Yes (dx about 3 yrs ago) Hx Dizziness: Yes (vertigo) Other/Comment: pt "sundown's", wanders, has had hallucinations in the past, agitation, memory loss, confusion, as per daughter - HEENT Hx HEENT Disorder: No - Renal Hx Renal Disorder: No - Endocrine/Metabolic Hx Endocrine Disorders: No - Hematological/Oncological Hx Blood Disorders: No Hx Cancer: No - Integumentary Hx Dermatological Disorder: Yes Hx Eczema: Yes Other/Comment: dry patches of skin over body from eczema, small 1cm round red area of skin above left knee - Musculoskeletal/Rheumatological Hx Falls: Yes (found on floor today) - Gastrointestinal Hx Gastrointestinal Disorders: No - Genitourinary/Gynecological Hx Genitourinary Disorders: Yes (negative mammo abouot 5 yrs ago) Hx Sexually Transmitted Diseases: No - Psychiatric Hx Psychophysiologic Disorder: Yes Hx Depression: Yes (after spoused ) Hx Hallucinations: Yes Hx Substance Use: No - Past Surgical History Past Surgical History: No Previous - Suicidal Assessment Feels Threatened In Home Enviroment: No <Manuel Webber - Last Filed: 09/25/18 19:19> Family/Social History Family/Social History: No Known Family HX Smoking Status: Never Smoked Hx Alcohol Use: No Hx Substance Use: No <Manuel Webber - Last Filed: 09/25/18 19:19> Allergies/Home Meds <Manuel Webber - Last Filed: 09/25/18 19:19> <Grisel Abdul - Last Filed: 09/25/18 20:16> Allergies/Adverse Reactions: Allergies No Known Allergies Allergy (Verified 07/11/14 08:32) Home Medications: Home Meds Medication Instructions Recorded Confirmed ALPRAZolam [Xanax] 0.25 mg PO DAILY 07/02/18 07/02/18 ALPRAZolam [Xanax] 0.5 mg PO HS 07/02/18 07/02/18 Acetaminophen [Tylenol] 650 mg PO PRN PRN 07/02/18 07/02/18 Cyanocobalamin [Vitamin B12] 1,000 mcg PO DAILY 07/02/18 07/02/18 Magnesium Hydroxide [Milk Of 400 mg PO PRN PRN 07/02/18 07/02/18 Magnesia] Melatonin [Meladox Natural Sleep 3 mg PO HS 07/02/18 07/02/18 Aid] Memantine [Namenda] 10 mg PO DAILY 07/02/18 07/02/18 Mirtazapine [Remeron] 30 mg PO DAILY 07/02/18 07/02/18 Multvitamin 1 tab PO DAILY 07/02/18 07/02/18 QUEtiapine [SEROquel] 50 mg PO HS 07/02/18 07/02/18 Review of Systems - Review of Systems Systems not reviewed;Unavailable: Dementia <Manuel Webber - Last Filed: 09/25/18 19:19> Physical Exam Vital Signs Reviewed: Yes Vital Signs Temp Pulse Resp BP Pulse Ox 09/25/18 18:12 97.9 F 104 H 18 120/93 H 98 Temperature: Afebrile Blood Pressure: Hypertensive Pulse: Tachycardic Respiratory Rate: Normal Appearance: Positive for: Well-Appearing, Non-Toxic, Comfortable, Other (confused) Pain Distress: None Mental Status: Positive for: Alert and Oriented X 3 - Systems Exam Head: Present: Atraumatic, Normocephalic Pupils: Present: PERRL Extroacular Muscles: Present: EOMI Conjunctiva: Present: Normal Mouth: Present: Moist Mucous Membranes Neck: Present: Normal Range of Motion. No: JVD, Lymphadenopathy Respiratory/Chest: Present: Clear to Auscultation, Good Air Exchange. No: Respiratory Distress, Accessory Muscle Use, Wheezes, Rales, Rhonchi Cardiovascular: Present: Regular Rate and Rhythm, Normal S1, S2, Peripheal Pulses Present. No: Murmurs, Rub, Gallop Abdomen: Present: Normal Bowel Sounds. No: Tenderness, Distention Back: Present: Normal Inspection. No: Paraspinal Tenderness Upper Extremity: Present: Normal Inspection, Normal ROM, NORMAL PULSES, Neurovascularly Intact, Capillary Refill < 2s. No: Cyanosis, Edema, Tenderness, Temperature Abnormalties Lower Extremity: Present: Normal Inspection, NORMAL PULSES, Normal ROM, Neurovascularly Intact, Capillary Refill < 2 s. No: Edema Neurological: Present: GCS=15, CN II-XII Intact, Speech Normal, Motor Func Grossly Intact, Normal Sensory Function Skin: Present: Warm, Dry, Normal Color. No: Rashes Psychiatric: Present: Alert (Oriented x1 ) <Manuel Webber - Last Filed: 09/25/18 19:19> Vital Signs Temp Pulse Resp BP Pulse Ox 09/25/18 18:12 97.9 F 104 H 18 120/93 H 98 <Grisel Abdul - Last Filed: 09/25/18 20:16> Medical Decision Making ED Course and Treatment: 09/25/18 18:49 77 y o female Past medical history hypertension, Alzheimer's disease, prior seizure, BiBEMS from snf s/o witnessed seizure x 3 mins. Plan: -Labs -EKG -Head CT Discussed case with PMD Dr. Marin at bedside, who will accept admission under his service. Pt to be admitted for seizure work-up, to [facility] hospital bed. - RAD Interpretation Radiology Orders: 09/25/18 18:23 HEAD W/O CONTRAST [CT] Stat 09/25/18 18:24 CHEST PORTABLE [RAD] Stat - Medication Orders Current Medication Orders: Alprazolam (Xanax) 0.25 mg PO DAILY PRN; Protocol PRN Reason: Agitation Stop: 10/03/18 10:01 Alprazolam (Xanax) 0.5 mg PO HS [facility]; Protocol Stop: 10/02/18 22:01 Cyanocobalamin (Vitamin B12 1000 Mcg Tab) 1,000 mcg PO DAILY [facility] Memantine (Namenda) 10 mg PO DAILY [facility] Metoprolol Tartrate (Lopressor) 25 mg PO BID [facility] Mirtazapine (Remeron) 30 mg PO HS [facility] Mirtazapine (Remeron) 30 mg PO DAILY [facility] Non-Formulary Medication (Acetaminophen [Tylenol]) 650 mg PO PRN PRN PRN Reason: Pain, moderate (4-7) Polyethylene Glycol (Miralax) 17 gm PO BID [facility] Quetiapine Fumarate (Seroquel) 50 mg PO HS [facility]; Protocol <Manuel Webber - Last Filed: 09/25/18 19:19> ED Course and Treatment: 09/25/18 20:14 Patient seen by resident and then evaluated by me. Patient on keppra due to ? seizures and discontinued 3 days ago. Now with ?seizure episode. No head trauma. Back at neuro baseline- demented at baseline. Moving all extremities. Dr. Marin at bedside and ordered neuro evaluation and eeg to evaluate for seizure vs syncope - Lab Interpretations Lab Results: 09/25/18 18:33 09/25/18 18:33 Lab Results 09/25/18 18:33: Sodium 139, Potassium 4.2, Chloride 102, Carbon Dioxide 27, Anion Gap 14, BUN 20, Creatinine 0.9, Est GFR ( Amer) > 60, Est GFR (Non- Af Amer) > 60, Random Glucose 167 H, Calcium 9.7, Phosphorus 3.4, Magnesium 2.2, Total Bilirubin 0.5, AST 31, ALT 34, Alkaline Phosphatase 134 H D, Troponin I < 0.01, Total Protein 8.3, Albumin 4.3, Globulin 4.0, Albumin/Globulin Ratio 1.1 09/25/18 18:33: WBC 9.7, RBC 4.79, Hgb 13.7 D, Hct 42.0, MCV 87.7, MCH 28.6, MCHC 32.6, RDW 13.9, Plt Count 300, MPV 10.4, Gran % 57.9, Lymph % (Auto) 33.9, Foard % (Auto) 7.3 H, Eos % (Auto) 0.9 L, Baso % (Auto) 0.0, Gran # 5.64, Lymph # (Auto) 3.3, Foard # (Auto) 0.7 H, Eos # (Auto) 0.1, Baso # (Auto) 0.00 - RAD Interpretation Radiology Orders: 09/25/18 18:23 HEAD W/O CONTRAST [CT] Stat 09/25/18 18:24 CHEST PORTABLE [RAD] Stat - Medication Orders Current Medication Orders: Acetaminophen (Tylenol 325mg Tab) 650 mg PO Q4H PRN PRN Reason: Pain, moderate (4-7) Alprazolam (Xanax) 0.25 mg PO DAILY PRN; Protocol PRN Reason: Agitation Stop: 10/03/18 10:01 Alprazolam (Xanax) 0.5 mg PO HS [facility]; Protocol Stop: 10/02/18 22:01 Cyanocobalamin (Vitamin B12 1000 Mcg Tab) 1,000 mcg PO DAILY [facility] Lorazepam (Ativan) 0.5 mg IVP Q6 PRN; Protocol PRN Reason: Agitation Memantine (Namenda) 10 mg PO DAILY [facility] Metoprolol Tartrate (Lopressor) 25 mg PO BID [facility] Mirtazapine (Remeron) 30 mg PO HS [facility] Mirtazapine (Remeron) 30 mg PO DAILY [facility] Polyethylene Glycol (Miralax) 17 gm PO BID [facility] Quetiapine Fumarate (Seroquel) 50 mg PO HS [facility]; Protocol Discontinued Medications Lorazepam (Ativan) 1 mg IVP STAT STA; Protocol Stop: 09/25/18 18:44 Last Admin: 09/25/18 19:07 Dose: 1 mg IVP Administration Document 09/25/18 19:07 SS (Rec: 09/25/18 19:[address]) Charges for Administration # of IVP Administrations 1 Lorazepam (Ativan) 1 mg IVP ONCE ONE; Protocol Stop: 09/25/18 19:45 Last Admin: 09/25/18 19:51 Dose: 1 mg IVP Administration Document 09/25/18 19:51 SS (Rec: 09/25/18 19:[address]) Charges for Administration # of IVP Administrations 1 <Grisel Abdul - Last Filed: 09/25/18 20:16> Disposition/Present on Arrival - Present on Arrival Any Indicators Present on Arrival: No History of DVT/PE: No History of Uncontrolled Diabetes: No Urinary Catheter: No History of Decub. Ulcer: No History Surgical Site Infection Following: None - Disposition Have Diagnosis and Disposition been Completed?: Yes Disposition Time: 18:52 Patient Plan: Admission <Manuel Webber - Last Filed: 09/25/18 19:19> <Grisel Abdul - Last Filed: 09/25/18 20:16> - Disposition Diagnosis: Seizure Disposition: HOSPITALIZED Patient Problems: Current Active Problems Problem Status Onset Seizure Acute Condition: GUARDED
[2018-09-25 18:47] LABS: ALB/GLOB RATIO 1.1 (1.1-1.8); ALBUMIN 4.3 g/dL (3.0-4.8); ALT/SGPT 34 U/L (7-56); AST/SGOT 31 U/L (14-36); BLOOD UREA NITROGEN 20 mg/dL (7-21); CALCIUM 9.7 mg/dL (8.4-10.5); GFR NON-AFRICAN AMERICAN > 60
[2018-09-25 18:58] LABS: TROPONIN I < 0.01 ng/mL
--- NOTE | 2018-09-25 20:17 | CARD ---
APPROVED REPORT Date of service: 09/25/2018 EKG Measurement Heart [id number] <Conclusion> Sinus tachycardia Otherwise normal ECG
[2018-09-25 22:37] VITALS: RESP 20
[2018-09-25] MEDS ORDERED: Influenza Vaccine 60 mcg/0.5 mL SYR (4YR UP) IM ONE (22:53)
[2018-09-25] MEDS ORDERED: Nystatin 100,000 Units/gm Topical Pow(15 gm) TOP PRN (23:05)
--- NOTE | 2018-09-26 06:14 | HP ---
DATE OF EXAM: 09/25/2018 HISTORY OF PRESENT ILLNESS: I was walking through the ER and saw her in the emergency room at [facility]. There was a question of if she fell on off a shower chair in [facility] where she lives or was it a seizure. The nurse said she was possibly postictal for a short period of time, but in the ER, she is talking at her baseline. history of hypertension, Alzheimer's disease, anxiety, was permanently living at [facility]. There is a question whether it was a witnessed seizure. She was apparently unresponsive, that is the information we have gotten. Questionable nonverbal for 3 minutes, little disoriented, but that could be her baseline also. She has been on Keppra for I do not think there was any documentation of the seizure, but she had fallen and was not sure why. It was stopped 3 days ago because the request from her daughter who felt that she was not sure if there was a seizure that was actually going on and also felt that it could be stopping her appetite, so we are going to bring her in and do an EEG, get Neurology involved and see if we can get to the bottom of this. She had a hip fracture recently and an ORIF. She is on Xanax, melatonin, memantine, Lopressor, mirtazapine, MiraLax, Seroquel, vitamin B12, and occasional Percocet. It was a sudden change and resolved in a very short period of time. She has hypertension, Alzheimer's disease, dementia, and vertigo. She sundowns, wanders, hallucinates, agitates, memory loss, confusion, and memory is poor. She has some eczema, bright patches of skin around the body. She was found on the floor. She had negative mammography about 5 years ago. She was little bit depressed since her spouse , some hallucinations. No substance abuse. FAMILY HISTORY: Unknown family history. SOCIAL HISTORY: Never smoked. No drinking. No drugs. ALLERGIES: NO KNOWN DRUG ALLERGIES. MEDICATIONS: She is on Xanax regularly and p.r.n., Tylenol, vitamin B12, Milk of Magnesia, melatonin, Namenda, Remeron, multivitamin, and Seroquel. REVIEW OF SYSTEMS: She is demented, but in no distress when I was talking to her, and she is calm. Not anxious either. PHYSICAL EXAMINATION: GENERAL: She is well-appearing, nontoxic, comfortable, but confused. Alert and oriented x3. VITAL SIGNS: Temperature 97.9, pulse 104, respiratory rate 18, blood pressure 120/90, and 98% O2 sat. HEENT: Head is atraumatic, normocephalic. Extraocular muscles are intact. Pupils are reactive to light. Throat moist. NECK: Supple. Normal range of motion. No JVD. No lymphadenopathy. Nontender. HEART: Regular rate, normal S1 and S2. LUNGS: Decreased breath sounds bilaterally, but clear. No wheezes, rhonchi, or rales. ABDOMEN: Soft and nontender. Positive bowel sounds. No apparent back tenderness. EXTREMITIES: No edema of the lower extremities. She moves all four extremities. No apparent pain. NEUROLOGIC: GCS is 15. Cranial nerves II through XII grossly intact. Speech is normal. She is presently confused. She is alert and oriented x1 maybe. SKIN: Warm and dry. No apparent rashes. She has some dry skin. LABORATORY DATA: She had multiple tests done. Chest x-ray and EKG that are pending. White count 9.7, hemoglobin 13.7, hematocrit 42, and platelets 300,000. Sodium 139, potassium 4.2, BUN 20, creatinine 0.9, GFR is greater than 60, and sugar elevated 167. We will put her on coverage. It could all be from stress. Calcium is 9.7, phosphorous 3.4, magnesium 2.2, and total bili 0.5. AST 31, ALT 34, and alkaline phosphatase 134. Troponin I is less than 0.01. Total protein is 0.3. Albumin is 4.3. Globulin is 4. IMPRESSION AND PLAN: There is an order for neurological evaluation, Dr. Noonan, also an EEG was ordered and a CAT scan of the head if she can rest or if she does not. Physical therapy was ordered. This is discussed with daughter who is now at [facility]. She is here for fall, rule out syncope versus seizure. Hopefully, we will get to the bottom of this if it is really a seizure or not with the EEG. She was in the hospital far back in 2011 and 2017. I am looking for an EEG. There were no EEGs done, but placed on Keppra. See what the EEG is tomorrow. Manny Marin DO MTDD
--- NOTE | 2018-09-26 09:03 | CT ---
Date of service: 09/25/2018 PROCEDURE: CT HEAD WITHOUT CONTRAST. HISTORY: seizure COMPARISON: 07/02/2018. TECHNIQUE: Axial computed tomography images were obtained through the head/brain without intravenous contrast. Radiation dose: Total exam DLP = 1758.26 mGy-cm. This CT exam was performed using one or more of the following dose reduction techniques: Automated exposure control, adjustment of the mA and/or kV according to patient size, and/or use of iterative reconstruction technique. FINDINGS: HEMORRHAGE: No intracranial hemorrhage. BRAIN: There are mild chronic microangiopathic changes. There is no mass, mass effect or abnormal extra-axial fluid collection. There is no territorial infarction. The midline sagittal structures are normal. VENTRICLES: There is mild age-related global parenchymal volume loss and proportionate enlargement of the ventricles and cortical sulci. CALVARIUM: There is no calvarial fracture or extracranial soft tissue swelling. PARANASAL SINUSES: Predominantly clear. MASTOID AIR CELLS: Predominantly clear. OTHER FINDINGS: None. IMPRESSION: No acute intracranial abnormality. Mild chronic microangiopathic changes and mild age-related global parenchymal volume loss. A preliminary report was provided by [facility].
[2018-09-26 09:10] VITALS: BP 128/72; TEMP 97.6; O2SAT 97
[2018-09-26] MEDS ORDERED: POLYETHYLENE GLYCOL 3350 17 GM/Dose PACKET PO SCH (10:00)
--- NOTE | 2018-09-26 11:56 | RAD ---
Date of service: 09/25/2018 HISTORY: cough COMPARISON: 07/05/2018. FINDINGS: LUNGS: The lungs are hyperinflated and there is peribronchial thickening with chronic changes in both lungs. There is redemonstration of a stable 2.4 cm nodule in the right lower lobe. PLEURA: No pleural effusions or pneumothorax. CARDIOVASCULAR: The heart is normal in size. No aortic atherosclerotic calcification present. OSSEOUS STRUCTURES: Within normal limits for the patient's age. VISUALIZED UPPER ABDOMEN: Normal. OTHER FINDINGS: None. IMPRESSION: Stable 2.4 cm nodule in the right lower lobe. COPD. No active pulmonary disease with
[2018-09-26 12:22] LABS: HEMOGLOBIN 13.2 g/dL (12.0-16.0); MEAN CELL VOLUME 88.4 fl (80.0-105.0); MEAN CORPUSCULAR HEMOGLOBIN 28.8 pg (25.0-35.0); MEAN CORPUSCULAR HGB CONC 32.6 g/dl (31.0-37.0); MEAN PLATELET VOLUME 10.7 fl (7.0-11.0); RBC 4.58 10^6/uL (3.5-6.1); RED CELL DISTRIBUTION WIDTH 14.2 % (11.5-14.5); WHITE BLOOD COUNT 6.7 10^3/uL (4.5-11.0)
[2018-09-26 12:32] LABS: CALCIUM 9.6 mg/dL (8.4-10.5)
--- NOTE | 2018-09-26 12:54 | PN ---
DATE: 09/26/2018 SUBJECTIVE: She was resting comfortably in bed. She slept most of the night. She has been up and down with her dementia and confusion. We are giving her medications to calm that down we are trying to get the results of a chest x-ray, head CT and at 9 a.m., she is going to go for an EEG and then we will see what the labs say today. If all these things come out well, my plan is to discharge her back to [facility]. If we find something on the EEG, if we find signs of any of the test, we will manage it, but she still has a chance to go back to the [facility] today where she lives permanently. I discussed with the daughter, she understands hopefully by 9 o'clock with more results and we will keep her as comfortable and out of trouble as possible. She is here for a possible seizure with dementia and waiting for Neurology to give their opinion. PHYSICAL EXAMINATION: GENERAL: Alert and confused, but pleasant. VITAL SIGNS: Temperature is 97.8, 90 pulse, 105/62 blood pressure, 20 respiratory rate, 100% O2 sat on room air. HEENT: Head atraumatic and normocephalic. HEART: Regular rate. LUNGS: Decreased breath sounds, but clear. ABDOMEN: Soft. EXTREMITIES: No edema. NEUROLOGIC: At her baseline, presently confused. LABORATORY DATA: Labs from night were fairly good. There was an elevated blood sugar of 167. I am going to see what this morning's blood sugar is and I am waiting for those tests. Manny Marin DO MTDChinyere
--- NOTE | 2018-09-26 13:29 | PCM.EEG ---
Electroencephalogram Report - Electroencephalogram Report Procedure Date: 09/26/18 Medication: Xanax, Namenda, Mirtazipine. Interpretation: Technical Information: This was a 21 -channel EEG, 1-channel EKG routine EEG performed using an [employer] machine. Electrodes were applied using the 10/20 international placement system. Start; 9:51 End; 10;37 Total; 43 min. Clinical Information: Dementia. and Seizures. EEG Detail: During active states, the EEG contained symmetric 10-20 Hz,20-30 uV activity seen bi-frontally. . During resting wakefulness there was a symmetric posterior dominant rhythm at 7.5 Hz, 30-50 uV, which was reactive to eye opening and closing. . Drowsiness (10;06) was associated with fragmentation of the posterior dominant rhythm and with slow roving eye movements. Sleep was seen, at 10;25, characterized by bilateral spindles. There was intermittent bi frontal slowing. Hyperventilation was not performed. Photic stimulation was performed and there were no changes on the record. Interictal activity; none Focal abnormality; none Impression: This is an abnormal EEG record that demonstrate the presence of a mild non specific diffuse disturbance of cortical activity, this is keeping with a diffuse mccall matter dysfunction, these findings re not specific.
--- NOTE | 2018-09-26 15:25 | CP.PCM.PCO ---
Physician Communication Note - Physician Communication Note Physician Communication Note: hold keppra/ eeg shows slowing and no sz activity. c/w seroquel qhs.
--- NOTE | 2018-09-26 18:59 | CON ---
DATE: 09/26/2018 HISTORY OF PRESENT ILLNESS: This is a 77-year-old female from [facility] fell off the shower chair and the patient was postictal. Also has a past medical history of hypertension, Alzheimer's, anxiety and the patient had a witnessed seizure. No tongue bite. The patient was unresponsive. The patient was on Keppra, it was stopped 3 days ago and EEG was done which shows bilateral cerebellar dysfunction and called to evaluate the patient. Past medical history as above. [facility]. PHYSICAL EXAMINATION: GENERAL: The patient is awake, confused. HEENT: Pupils are reactive bilateral no facial asymmetry. Tongue is midline. MOTOR EXAMINATION: Spontaneous movement of the extremities noted. Deep tendon reflexes 1+. Both plantars are downgoing. Sensory appears intact. Cerebellar gait deferred. IMPRESSION AND PLAN: Possibly encephalopathy superimposed, toxic metabolic and seizure. We will start Keppra 500 mg p.o. daily and EEG was done which was bilateral cerebellar dysfunction. We will followup. Jeevan Noonan MD
[2018-09-26 19:31] VITALS: PULSE 81
== END 2018-09-26 19:51 ==
LOC: ED 18:07 → ERH 18:36 → 3RSO 20:38
PROVIDERS: ADMIT Family Medicine; ATTEND Family Medicine
DX: R56.9 Unspecified convulsions (principal); G30.9 Alzheimer's disease, unspecified; F02.80 Dementia in other diseases classified elsewhere, unspecified severity, without behavioral disturbance, psychotic disturbance, mood disturbance, and anxiety; I10 Essential (primary) hypertension; L30.9 Dermatitis, unspecified; W07.XXXA Fall from chair, initial encounter; Y92.121 Bathroom in nursing home as the place of occurrence of the external cause; Z79.899 Other long term (current) drug therapy
CPT/HCPCS: 36415; 70450; 71045; 80053; 83735; 84100; 84484; 85025; 85027; 93005; 96374; 96376; 97162; 97530; 99285; G0378; G8978; G8979; J2060